=== PATIENT | female | born 1975 | race Caucasian/White ===

== ENCOUNTER → 2018-12-27 13:00 | Outpatient (CLI) | payer OTHER, SELFPAY ==
--- NOTE | 2018-12-27 13:02 | DI.RAD.S_ITS ---
PROCEDURE: XR CHEST 2V INDICATIONS: cough TECHNIQUE: 2 views of the chest were acquired. COMPARISON: None. FINDINGS: Surgical changes and devices: None. Lungs and pleura: Lungs are clear. No pleural effusions or pneumothorax. Mediastinum: Mediastinal contours are normal. Heart size is normal. Bones and chest wall: No suspicious bony abnormalities. Soft tissues appear unremarkable. IMPRESSION: No acute cardiopulmonary pathology. Dictated by: Destin Munson M.D. on 12/27/2018 at 13:16 Approved by: Destin Munson M.D. on 12/27/2018 at 13:22
== END ==
PROVIDERS: PCP Internal Medicine; Visit Provider Physician Assistant
DX: R05 Cough (principal)
CPT/HCPCS: 71046

== ENCOUNTER → 2019-03-16 17:15 | Outpatient (CLI) | payer OTHER, SELFPAY ==
--- NOTE | 2019-03-16 | DI.MG.S_ITS ---
BILATERAL DIGITAL SCREENING MAMMOGRAM 3D/2D WITH CAD: 03/16/2019 CLINICAL: Routine screening. Baseline exam. No prior exams were available for comparison. The tissue of both breasts is extremely dense, which lowers the sensitivity of mammography. Current study was also evaluated with a Computer Aided Detection (CAD) system. There are grouped round calcifications in the right breast posterior depth inferior region are partially seen on the mediolateral oblique view only. No other significant masses, calcifications, or other findings are seen in either breast. IMPRESSION: INCOMPLETE: NEEDS ADDITIONAL IMAGING EVALUATION The grouped round calcifications in the right breast are indeterminate. Additional views with possible ultrasound are recommended. This exam was interpreted at Station ID: [id number]. NOTE: For mammograms, a report in lay terms will be sent to the patient. Approximately 15% of breast malignancies will not be visualized mammographically. In the management of a palpable breast mass, a negative mammogram must not discourage biopsy of a clinically suspicious lesion. Electronically Signed By: Renato Ken M.D. slc/:03/17/2019 08:36:50 letter sent: Additional Imaging Needed ACR BI-RADS Category 0: Incomplete [id number]
== END ==
PROVIDERS: PCP Internal Medicine; Visit Provider Internal Medicine
DX: Z12.31 Encounter for screening mammogram for malignant neoplasm of breast (principal)
CPT/HCPCS: 77063; 77067

== ENCOUNTER → 2019-04-06 13:43 | Outpatient (CLI) | payer OTHER, SELFPAY ==
--- NOTE | 2019-04-06 | DI.MG.S_ITS ---
UNILATERAL RIGHT DIGITAL DIAGNOSTIC MAMMOGRAM 3D/2D WITH ADDITIONAL VIEWS: 04/06/2019 CLINICAL: Additional evaluation requested from prior study. Comparison is made to exam dated: 03/16/2019 [facility]. The tissue of right breast is extremely dense, which lowers the sensitivity of mammography. There are grouped fine punctate calcifications in the right breast at 7 o'clock middle depth. No other significant masses or calcifications are seen in the breast. IMPRESSION: PROBABLY BENIGN The grouped fine punctate calcifications in the right breast are probably benign. A follow-up mammogram in 6 months is recommended. A follow-up mammogram in 6 months is recommended to demonstrate stability. This exam was interpreted at Station ID: [id number]. NOTE: For mammograms, a report in lay terms will be sent to the patient. Approximately 15% of breast malignancies will not be visualized mammographically. In the management of a palpable breast mass, a negative mammogram must not discourage biopsy of a clinically suspicious lesion. Electronically Signed By: Erik soriano/corina:04/06/2019 14:39:55 letter sent: Followup Recommended ACR BI-RADS Category 3: Probably benign [id number]
== END ==
PROVIDERS: PCP Internal Medicine; Visit Provider Internal Medicine
DX: R92.8 Other abnormal and inconclusive findings on diagnostic imaging of breast (principal); R92.1 Mammographic calcification found on diagnostic imaging of breast
CPT/HCPCS: 77065; G0279

== ENCOUNTER → 2019-09-15 10:01 | Outpatient (CLI) | payer SELFPAY ==
--- NOTE | 2019-09-15 | DI.MG.S_ITS ---
UNILATERAL RIGHT DIGITAL DIAGNOSTIC MAMMOGRAM 3D/2D SHORT-TERM FOLLOW-UP: 09/15/2019 CLINICAL: Short term follow up. Comparison is made to exams dated: 04/06/2019 mammogram and 03/16/2019 mammogram - [facility]. The tissue of right breast is extremely dense, which lowers the sensitivity of mammography. There are grouped fine calcifications in the right breast at 6 o'clock posterior depth. These are not significantly changed. No other significant masses or calcifications are seen in the breast. IMPRESSION: PROBABLY BENIGN The grouped fine calcifications in the right breast are probably benign. A follow-up mammogram in 6 months is recommended. A follow-up mammogram in 6 months is recommended to demonstrate stability. This exam was interpreted at Station ID: [id number]. NOTE: For mammograms, a report in lay terms will be sent to the patient. Approximately 15% of breast malignancies will not be visualized mammographically. In the management of a palpable breast mass, a negative mammogram must not discourage biopsy of a clinically suspicious lesion. Electronically Signed By: Erik soriano/corina:09/15/2019 10:57:20 letter sent: Followup Recommended ACR BI-RADS Category 3: Probably benign [id number]
--- NOTE | 2019-09-15 | DI.US.S_ITS ---
PROCEDURE: US THYROID INDICATIONS: RIGHT THYROID NODULE TECHNIQUE: Real-time scanning was performed of the thyroid gland, with image documentation. COMPARISON: [facility], RG, US THYROID, 11/02/2017, 9:29. FINDINGS: Right: Thyroid lobe measures 4.6 x 2.7 x 2.2 cm. Left: Thyroid lobe measures 4.2 x 1.7 x 1.1 cm, and is homogenous in echotexture. Isthmus: 3 mm thick. Nodule number: 1 Location: Right superior thyroid Size: 0.9 x 0.6 x 0.9 cm, previously measuring 0.7 x 0.4 x 0.7 cm. Composition: Predominantly cystic Echogenicity: Hypoechoic Shape: wider than tall. Margins: Smooth Echogenic foci: None Total points: 3 ACR TI-RADS category: 3 Nodule number: 2 Location: Right mid to inferior thyroid Size: 2 x 2.3 x 2.4 cm, previously measuring 2.3 x 2.2 x 1.8 cm. Composition: Predominantly cystic Echogenicity: Hypoechoic Shape: wider than tall. Margins: Smooth Echogenic foci: None Total points: 3 ACR TI-RADS category: 3 IMPRESSION: Right-sided thyroid lesions are seen, which are similar to the prior examination have the appearance of complicated cysts. For the larger lesion, a followup ultrasound is recommended in 2 years. ACR TI-RADS definitions and recommendations: TI-RADS 1 (benign): 0 points. FNA not needed. TI-RADS 2 (not suspicious): 2 points. FNA not needed. TI-RADS 3 (mildly suspicious): 3 points. * FNA if 2.5 cm or larger, follow up if 1.5 cm or larger (at 1, 3, and 5 years). TI-RADS 4 (moderately suspicious): 4-6 points. * FNA if 1.5 cm or larger, follow up if 1 cm or larger (at 1, 2, 3, and 5 years). TI-RADS 5 (highly suspicious): 7 points or more. * FNA if 1 cm or larger, follow up if 0.5 cm or larger (every year for 5 years). Dictated by: Milan Casas M.D. on 09/15/2019 at 10:54 Approved by: Milan Casas M.D. on 09/15/2019 at 10:57
== END ==
PROVIDERS: PCP Internal Medicine; Referring Provider Internal Medicine; Visit Provider Internal Medicine
DX: R92.8 Other abnormal and inconclusive findings on diagnostic imaging of breast (principal); R92.1 Mammographic calcification found on diagnostic imaging of breast; E04.2 Nontoxic multinodular goiter
CPT/HCPCS: 76536; 77065; G0279

== ENCOUNTER 2019-09-28 19:59 | Emergency (ER) | payer SELFPAY ==
[2019-09-28 20:08] VITALS: BP 142/84; PULSE 100; RESP 20; TEMP 37; O2SAT 97
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
[2019-09-28] MEDS: TET,DIPH,PERTUSS(ACELL),VAC/PF 0.5 ML SYRINGE IM (20:48)
[2019-09-28] MEDS: HYDROCODONE/ACET 5/325 PREPACK 1 BOTTLE MISC (20:48)
[2019-09-28] MEDS: ONDANSETRON 4 MG ODT PREPACK 1 BOTTLE MISC (20:48)
[2019-09-28] MEDS: HYDROMORPHONE 1 MG INJ IM (20:50)
--- NOTE | 2019-09-28 21:03 | PC.NURSE ---
Patient was injected with dilaudid and a tdap and tolerated both injections well. She was given ice for her hand.
[2019-09-28 21:05] VITALS: BP 120/72; PULSE 92; RESP 14; O2SAT 100
[2019-09-28 21:35] VITALS: BP 119/90; PULSE 77; RESP 12; O2SAT 100
[2019-09-28] MEDS: BACITRACIN OINT 0.9 GM PCKT 1 APPLIC TOP (21:56)
[2019-09-28 22:12] VITALS: BP 119/90; PULSE 77; RESP 12; O2SAT 100
== END 2019-09-28 22:15 | disposition home or self-care (01) ==
PROVIDERS: Emergency Provider Emergency Medicine; PCP Internal Medicine
DX: T23.201A Burn of second degree of right hand, unspecified site, initial encounter (principal); X08.8XXA Exposure to other specified smoke, fire and flames, initial encounter
CPT/HCPCS: 90471; 96372; 99283; 90715; J1170

== ENCOUNTER 2020-02-10 12:33 | Emergency (ER) | payer OTHER, SELFPAY ==
[2020-02-10] VITALS (8 sets, daily range): BP systolic 106–133; BP diastolic 67–87; PULSE 79–105; RESP 18–29; TEMP 37.1; O2SAT 100; BMI 22.4
--- NOTE | 2020-02-10 12:48 | DI.RAD.S_ITS ---
PROCEDURE: XR CHEST 1V INDICATIONS: chest pain TECHNIQUE: One view of the chest was acquired. COMPARISON: [facility], CR, XR CHEST 2V, 12/27/2018, 13:02. FINDINGS: Surgical changes and devices: None. Lungs and pleura: Lungs are clear. No pleural effusions or pneumothorax. Mediastinum: Mediastinal contours appear normal. Heart size is normal. Bones and chest wall: No suspicious bony lesions. Overlying soft tissues appear unremarkable. IMPRESSION: No evidence acute pulmonary process. Dictated by: Agustin Villagomez M.D. on 02/10/2020 at 12:05 Approved by: Agustin Villagomez M.D. on 02/10/2020 at 12:05
[2020-02-10 13:03] LABS: Add Manual Diff / Slide Review NO; Basophils Absolute Auto 100 /uL (0-100); Basophils Percent Auto 0.8 % (0-2); Eosinophils Absolute Auto 0 /uL (0-450); Eosinophils Percent Auto 0.2 % (2-4); Hematocrit 42.4 % (36-46); Hemoglobin 14.3 g/dL (12.0-16.0); Lymphocytes Absolute Auto 2400 /uL (1100-4500); Lymphocytes Percent Auto 35.7 % (25-40); Mean Corpuscular HGB Conc 33.6 % (30-36); Mean Corpuscular Hemoglobin 30.6 PG (26-34); Mean Corpuscular Volume 90.9 fL (80-100); Monocytes Absolute Auto 400 /uL (0-900); Monocytes Percent Auto 6.8 % (3-14); Neutrophils Absolute Auto 3700 /uL (1500-7000); Neutrophils Percent Auto 56.5 % (50-75); Red Blood Cell Count 4.66 X10^6/uL (4.0-5.2); Red Cell Distribution Width 15.7 % (11.6-14.8); White Blood Cell Count 6.6 X10^3/uL (4.5-11.0)
[2020-02-10 13:10] LABS: Prothrombin Time 11.4 SECONDS (10.1-12.7)
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
[2020-02-10 13:12] LABS: PTT Partial Thromboplastin Tim 29 SECONDS (26.4-36.2)
[2020-02-10 13:15] LABS: Alanine Aminotransferase 16 IU/L (<35); Albumin Globulin Ratio 1.5 (1.0-2.8); Alkaline Phosphatase 55 U/L (38-126); Aspartate Aminotransferase 31 IU/L (14-36); BUN Creatinine Ratio 15.1 (6-22); Bilirubin Total 0.5 mg/dL (0.2-1.3); Blood Urea Nitrogen 11 mg/dL (7-17); Calcium 9.7 mg/dL (8.4-10.2); Carbon Dioxide 25 mmol/L (22-32); Chloride 101 mmol/L (98-107); Creatine Kinase 57 U/L (30-135); Estimated Glomerular Filt Rate > 60.0 mL/min (>60); Globulin 3.4 g/dL (1.7-4.1); Glucose 99 mg/dL (70-100); HEMOLYSIS 35 (0-50); Lipase 173 U/L (23-300); Potassium 3.5 mmol/L (3.4-5.1); Sodium 139 mmol/L (137-145); Total Protein 8.4 g/dL (6.3-8.2)
[2020-02-10] MEDS: ALBUTEROL HFA 200 PUFF/18 GM INH (COVID POS/VENT PTS) INH (13:18)
--- NOTE | 2020-02-10 13:22 | PC.NURSE ---
patient ambulated self to restroom, provided urine sample collected by INSTRUCTIONAL DESIGN TECHNOLOGIST
[2020-02-10 13:28] LABS: D Dimer < 200 ng/mL (<230)
[2020-02-10 13:33] LABS: Platelet Count 89 X10^3/uL (150-400)
[2020-02-10] MEDS: ASPIRIN 81 MG CHEW TAB 324 MG PO (13:49)
[2020-02-10] MEDS: NITROGLYCERIN 0.4 MG SL TAB SL ×2 (13:51→14:22)
[2020-02-10] MEDS: HEPARIN 5,000 UNIT/ML VIAL 4000 UNIT IV (14:07)
[2020-02-10] MEDS: HEPARIN DRIP 25,000 UNIT/500 ML IV.SOLN 13.825 UNIT IV (14:08)
[2020-02-10 14:21] LABS: COVID19 -Nasal RAPID Negative (Negative)
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
--- NOTE | 2020-02-10 15:41 | PC.NURSE ---
Heparin gtt rate verified with transportation aide.
--- NOTE | 2020-02-10 15:48 | PC.NURSE ---
Pt left via EMS to [facility]. Report called to Leta LACY at [facility]. Heparin gtt running at time of leaving ED. CP 08/07. Pt appeared in NAD, had no questions.
[2020-02-13 14:12] LABS: Troponin I 0.483 ng/mL (0.01-0.034)
== END 2020-02-10 15:48 | disposition short-term general hospital (02) ==
PROVIDERS: Emergency Medicine; Emergency Provider Nurse Practitioner Family; PCP Internal Medicine
DX: I21.4 Non-ST elevation (NSTEMI) myocardial infarction (principal); R07.9 Chest pain, unspecified; R06.02 Shortness of breath
CPT/HCPCS: 36415; 71045; 80053; 81003; 81025; 82550; 83690; 84484; 85025; 85379; 85610; 85730; 87635; 93005; 94640; 96365; 96375; 99284; A9270; J1644

== ENCOUNTER → 2020-03-04 10:37 | Outpatient (CLI) | payer OTHER, SELFPAY ==
[2020-03-05 07:46] LABS: COVID19 Sendout Not Detected (Not Detect)
== END ==
PROVIDERS: PCP Internal Medicine; Visit Provider Physician Assistant
DX: Z11.59 Encounter for screening for other viral diseases (principal)
CPT/HCPCS: 87635

== ENCOUNTER → 2020-03-07 12:25 | Outpatient (CLI) | payer OTHER, SELFPAY ==
--- NOTE | 2020-03-15 15:52 | PM.PFT.1 ---
Pulmonary Function Test Referral & Results Date Patient Seen: 03/07/20 Requesting provider: Macy Cr Indication: Dyspnea Results: The spirometry demonstrates an FVC of 3.75 L which is 105% of predicted. The FEV1 was measured at 2.91 L which is 100% of predicted. The FEV1/FVC ratio was 78 which is 94% of predicted. Following the administration of bronchodilator there was no appreciable change to above normal numbers. Lung volumes show an SVC of 3.60 L which is 108% of predicted. The diffusing capacity was measured at 18.72 which is 81% of predicted. The maximum voluntary ventilation was normal Interpretation: This study demonstrates normal pulmonary function
== END ==
PROVIDERS: PCP Internal Medicine; Referring Provider Internal Medicine; Visit Provider Internal Medicine
DX: R06.00 Dyspnea, unspecified (principal); J98.8 Other specified respiratory disorders; Z87.891 Personal history of nicotine dependence
CPT/HCPCS: 94060; 94726; 94729

== ENCOUNTER → 2020-03-25 08:31 | Outpatient (CLI) | payer OTHER, SELFPAY ==
--- NOTE | 2020-03-25 | DI.MG.S_ITS ---
BILATERAL DIGITAL DIAGNOSTIC MAMMOGRAM 3D/2D SHORT-TERM FOLLOW-UP: 03/25/2020 CLINICAL: Patient returns for a 12 month follow up of the right breast, due for bilateral exam. Comparison is made to exams dated: 09/15/2019 mammogram, 04/06/2019 mammogram, and 03/16/2019 mammogram - [facility]. The tissue of both breasts is extremely dense, which lowers the sensitivity of mammography. There are stable grouped fine calcifications in the right breast at 6 o'clock posterior depth. No other significant masses, calcifications, or other findings are seen in either breast. IMPRESSION: PROBABLY BENIGN The stable grouped fine calcifications in the right breast are probably benign. A follow-up right mammogram in 6 months is recommended to demonstrate continued stability. Findings and recommendations were conveyed to the patient at time of exam. This exam was interpreted at Station ID: [id number]. NOTE: For mammograms, a report in lay terms will be sent to the patient. Approximately 15% of breast malignancies will not be visualized mammographically. In the management of a palpable breast mass, a negative mammogram must not discourage biopsy of a clinically suspicious lesion. Electronically Signed By: Joana hilliard/:03/25/2020 09:13:54 letter sent: Followup Recommended ACR BI-RADS Category 3: Probably benign [id number]
== END ==
PROVIDERS: Referring Provider Nurse Practitioner Family; Visit Provider Nurse Practitioner Family
DX: R92.8 Other abnormal and inconclusive findings on diagnostic imaging of breast (principal); R92.1 Mammographic calcification found on diagnostic imaging of breast
CPT/HCPCS: 77066; G0279

== ENCOUNTER → 2020-06-10 09:59 | Outpatient (CLI) | payer OTHER, SELFPAY ==
--- NOTE | 2020-06-10 10:01 | DI.RAD.S_ITS ---
PROCEDURE: XR KNEE RT 3V INDICATIONS: knee pain TECHNIQUE: 3 views of the knee were acquired. COMPARISON: None. FINDINGS: Bones: No fractures or dislocations. No suspicious bony lesions. Soft tissues: No joint effusion. No suspicious soft tissue calcifications. IMPRESSION: No fracture. No osseous lesion. If symptoms and/or clinical suspicion for pathology persists, further assessment with repeat radiographs (7-10 days) or advanced imaging (e.g. CT, MRI or bone scan) should be considered. Dictated by: Carolyn Ruffin MD, PhD on 06/10/2020 at 17:06 Approved by: Carolyn Ruffin MD, PhD on 06/10/2020 at 17:06
== END ==
PROVIDERS: Referring Provider Nurse Practitioner Family; Visit Provider Nurse Practitioner Family
DX: M25.561 Pain in right knee (principal)
CPT/HCPCS: 73562

== ENCOUNTER → 2020-08-12 07:53 | Outpatient (CLI) | payer OTHER, SELFPAY ==
--- NOTE | 2020-08-12 07:54 | DI.US.S_ITS ---
PROCEDURE: US PELVIC COMPLETE INDICATIONS: DUB TECHNIQUE: Real-time scanning was performed of the pelvic organs, with image documentation. Additional endovaginal scanning was necessary due to incomplete visualization of the adnexal and endometrial structures by transabdominal scanning. COMPARISON: [facility], , PELVIC COMPLETE, 07/04/2013, 11:03. FINDINGS: Uterus: Uterus is normal in size at 7.6 x 4.5 x 5 cm. The endometrium measures 7 mm in combined thickness. Ovaries: The right ovary measures 3.1 x 1.4 x 1.6 cm. The left ovary measures 2 x 1.8 x 1.3 cm. The ovaries have a normal sonographic appearance. No adnexal masses are seen. Other: No pathologic free abdominal or pelvic fluid. IMPRESSION: Pelvic ultrasound within normal limits. Dictated by: Milan Casas M.D. on 08/12/2020 at 9:46 Approved by: Milan Casas M.D. on 08/12/2020 at 9:47
== END ==
PROVIDERS: PCP Registered Nurse; Referring Provider Specialist; Visit Provider Specialist
DX: N92.0 Excessive and frequent menstruation with regular cycle (principal); N92.6 Irregular menstruation, unspecified; N94.6 Dysmenorrhea, unspecified
CPT/HCPCS: 76830; 76856

== ENCOUNTER → 2020-08-29 12:08 | Outpatient (CLI) | payer OTHER, SELFPAY ==
[2020-08-29 12:50] LABS: Add Manual Diff / Slide Review NO; Basophils Absolute Auto 100 /uL (0-100); Basophils Percent Auto 0.8 % (0-2); Eosinophils Absolute Auto 0 /uL (0-450); Eosinophils Percent Auto 0.3 % (2-4); Hematocrit 39.9 % (36-46); Hemoglobin 13.2 g/dL (12.0-16.0); Lymphocytes Absolute Auto 2700 /uL (1100-4500); Lymphocytes Percent Auto 39.3 % (25-40); Mean Corpuscular HGB Conc 33.1 % (30-36); Mean Corpuscular Hemoglobin 31.3 PG (26-34); Mean Corpuscular Volume 94.6 fL (80-100); Monocytes Absolute Auto 400 /uL (0-900); Monocytes Percent Auto 6.5 % (3-14); Neutrophils Absolute Auto 3700 /uL (1500-7000); Neutrophils Percent Auto 53.1 % (50-75); Platelet Count 93 X10^3/uL (150-400); Red Blood Cell Count 4.22 X10^6/uL (4.0-5.2); Red Cell Distribution Width 13.3 % (11.6-14.8); White Blood Cell Count 6.9 X10^3/uL (4.5-11.0)
== END ==
PROVIDERS: PCP Registered Nurse; Referring Provider Specialist; Visit Provider Specialist
DX: N92.1 Excessive and frequent menstruation with irregular cycle (principal)
CPT/HCPCS: 36415; 85025

== ENCOUNTER → 2020-09-12 11:37 | Outpatient (CLI) | payer OTHER, SELFPAY ==
[2020-09-12 12:15] LABS: COVID19 -Nasal RAPID Negative (Negative)
== END ==
PROVIDERS: PCP Registered Nurse; Visit Provider Specialist
DX: Z01.812 Encounter for preprocedural laboratory examination (principal); Z20.822 Contact with and (suspected) exposure to COVID-19
CPT/HCPCS: 87635

== ENCOUNTER 2020-09-13 06:17 | Day surgery (SDC) | payer OTHER, SELFPAY ==
[2020-09-13] VITALS (22 sets, daily range): BP systolic 93–125; BP diastolic 56–78; PULSE 63–85; RESP 11–18; TEMP 36.4–37.4; O2SAT 96–100; BMI 25.0
--- NOTE | 2020-09-13 | PATH_ITS ---
[facility] Accession Number: [id number] . 01 Material submitted: . uterus - UTERUS AND BILATERAL FALLOPIAN TUBES . 01 Clinical history: . OPB . 02 Diagnosis: Uterus and Bilateral Fallopian Tubes, Hysterectomy and Bilateral Salpingectomy (Disrupted Specimen Weight 50 grams): Basalis endometrium; negative for glandular hyperplasia, cytologic atypia, or malignancy. Myometrium with no significant histomorphologic abnormality. Uterine serosa with no significant histomorphologic abnormality. Fallopian tubes x2 with scattered, benign paratubal cysts (1-4 mm) and no significant histomorphologic abnormality; negative for epithelial atypia or malignancy. . [facility] 09/17/2020 1717 Local . 02 Electronically signed: . Jeannette Cantu MD, Pathologist NPI- [id number] . 01 Gross description: . The specimen is received in formalin, labeled uterus and bilateral fallopian tubes, and consists of a 50 g disrupted, supracervically resected uterus measuring 5.5 cm from superior fundus to lower uterine segment by 6.0 cm from cornu to cornu, by 3.5 cm from anterior to posterior. The serosa is chacon-pink and smooth. Sectioning reveals a chacon-pink, glistening endometrium measuring 0.1 cm in thickness. The myometrium is chacon-pink and trabeculated, measuring 1.8 cm in thickness. There are two attached fallopian tubes averaging 5.0 cm in length by 0.9 cm in diameter. The serosa is pink-purple and smooth with multiple paratubal cysts ranging from 0.1 cm to 0.4 cm. Sectioning reveals a chacon-pink mucosa and a stellate lumen measuring 0.3 cm in diameter. Retail Customer Service Specialist sections are submitted. . A1-A2: Lower uterine segment. A3-A5: Full-thickness cross-sections with uterus. A6-A7: Fallopian tube, bisected fimbria, and central cross-sections. ([id number]) /FRR 09/17/2020 [facility]4 Local . 02 Pathologist provided ICD-10: N92.1, N94.6 . 02 CPT . 296881 [facility]formed [facility]: [facility] [address] [id number] MD Erik Campbell MD Phone: [phone] Performed at: [address] [id number] MD Oxana Claros MD Phone: [phone]
[2020-09-13] MEDS: LACTATED RINGERS 1,000 ML 100 ML IV ×3 (07:20→20:17)
--- NOTE | 2020-09-13 07:21 | PM.PREOP ---
Pre-operative Note COVID-19 COVID-19 status: Negative Interval Note History & Physical reviewed/Exam performed by Physician: Yes Changes to H&P: No
--- NOTE | 2020-09-13 07:24 | SUR.OPER ---
Lithotomy on padded OR bed. Rabbit Hash Pad Positioner under torso. Head on pillow, arms padded and tucked at sides. Legs secured in padded yellow fins stirrups.
[2020-09-13] MEDS: CEFAZOLIN 2 GM/100 ML FROZ.PIGGY IV (07:45)
[2020-09-13] MEDS: BUPIVACAINE 0.25% W/ EPI 30 ML VIAL INJ (08:17)
[2020-09-13] MEDS: ROPIVACAINE 0.2% PF 2 MG/ML 10ML AMP 20 ML INJ (08:18)
--- NOTE | 2020-09-13 09:18 | PM.OP.1 ---
Operative Date/Time/Diagnoses Date of procedure: 09/13/20 Time of procedure: 09:18 Pre-op diagnosis: Menorrhagia and dysmenorrhea for laparoscopic supracervical hysterectomy Post-op diagnosis: same Procedure & Clinicians Procedure: Laparoscopic supracervical hysterectomy with bilateral salpingectomies Same procedure as scheduled: Yes Indications: Menorrhagia and dysmenorrhea Surgeon: Lorraine Valadez Functional Analyst: Alize Brumfield Click Yes if Unassisted: No Anesthesia Type: General Operative Notes Closure Type: primary Specimen(s): other (Uterus above the level of the cervix and bilateral fallopian tubes) Estimated Blood Loss (mL): 30 Blood products transfused: none Procedure in detail: Patient is brought to the operating room where she underwent general anesthesia and placed in low [facility] stirrups. She was prepped and draped in the usual sterile fashion. A check list was reviewed with the staff in the room prior to beginning of the case. Patient had pulsatile stockings in place and functional. 2 g of Ancef were in prior to beginning of the case.. A Prado catheter was placed. A single-tooth tenaculum was placed on the anterior lip of the cervix and the cervix dilated to a #6 Hegar dilator. The uterine manipulator was placed through the cervix into the uterus with the balloon inflated with 3 mL of air. The area of the umbilical incision and the 5 mm right and left lower quadrant incisions were injected with Marcaine with epi. An incision was made with scalpel. The verries needle was placed into the abdomen and confirmed in the appropriate place with withdrawal on a syringe and then free flow of fluid down through the needle. The abdomen was insufflated with CO2. The needle was removed and a 5 mm trocar placed without difficulty. There did not appear to be any damage is placement of the trocar. The right and left lower quadrant incisions were made with the scalpel and the trochars placed without damage to internal structures. The PK forceps were used to cauterize and cut adhesions of the omentum to the anterior abdominal wall. Sequential bites were taken along the mesosalpinx followed by the round ligaments on both sides. Sequential bites were taken down the broad ligaments. The uterine arteries were cauterized. An incision was made above the level bladder pushing the bladder away from the cervix. The MYLES loop was placed around the uterus and the uterus was amputated above the level of the bladder. Bleeding was controlled with the PK forceps. The PK forceps were used to cauterize in the endocervical canal. A supracervical incision was made and an 11 mm port placed. A 15 mm Endo Catch bag was placed in the abdomen. The uterus, tubes and ovaries were placed in the bag and brought up through the suprapubic port site. The Balbir O was placed. The uterus was hand morselized. The abdomen was reinsufflated and adequate hemostasis was noted. 20 cc Bupivacaine was placed over the cervical stump. The trochars were removed and the CO2 allowed escape from the abdomen. The fascia layer of the suprapubic site was repaired with 0 Polysorb suture. Skin was closed with 4-0 Vicryl suture at the suprapubic site and the other 3 sites. The patient went to recovery room in good condition. Counts of instruments and sponges were correct. Dr. Brumfield was present throughout the case to assist with holding the camera, retracting, cauterizing and cutting the structures on the left side of the patient, as well as assisting with morselization of the uterus. Complications: none Post-operative Condition: stable Disposition: Acute Care (Outpatient with bed, patient is preference is to be discharged tomorrow) Plan for aftercare: Routine post laparoscopy hysterectomy.
[2020-09-13] MEDS: ACETAMINOPHEN 325 MG TABLET 650 MG PO ×2 (09:33→13:24)
[2020-09-13] MEDS: OXYCODONE IR 5 MG TABLET PO ×5 (09:33→23:41)
[2020-09-13] MEDS: fentaNYL 100 MCG/2 ML INJ IV (10:00)
--- NOTE | 2020-09-13 11:18 | PC.NURSE ---
Patient arrived via bed at 1035, assumed care from BAMBI Webster. Patient A/O x 4, VS stable, 98% on room air, denies SOB. Lungs CTA, HR WNL, pulses equal. Patient c/o pain in abdomen /10, cramping, oxy 5 mg administered. Dsg x 4 intact, shadow drainage noted. Peripad is dry. LR@ 100cc/hr running in L wrist. SCD's on. Patient tolerating liquids, call light in reach, instructed to call before getting OOB. Patient verbalized understanding.
[2020-09-13] MEDS: KETOROLAC 30 MG/ML VIAL IV ×2 (16:47→22:16)
[2020-09-13] MEDS: TRAZODONE 50 MG TABLET PO (20:17)
[2020-09-13] MEDS: DOCUSATE 250 MG CAPSULE PO (20:17)
[2020-09-13] MEDS: MELATONIN 3 MG TABLET 9 MG PO (22:17)
[2020-09-14] VITALS: BP 99/62; PULSE 79; RESP 16; TEMP 36.8; O2SAT 96
[2020-09-14 00:18] VITALS: O2SAT 98
[2020-09-14 04:30] VITALS: BP 99/66; PULSE 68; RESP 14; TEMP 36.6; O2SAT 97
[2020-09-14] MEDS: KETOROLAC 30 MG/ML VIAL IV (04:33)
[2020-09-14] MEDS: OXYCODONE IR 5 MG TABLET PO (05:39)
[2020-09-14] MEDS: LEVOTHYROXINE 50 MCG TABLET PO (05:39)
[2020-09-14 05:57] LABS: Basophils Absolute Auto 0 /uL (0-100); Basophils Percent Auto 0.2 % (0-2); Eosinophils Absolute Auto 0 /uL (0-450); Hematocrit 36.7 % (36-46); Lymphocytes Absolute Auto 1600 /uL (1100-4500); Lymphocytes Percent Auto 14.7 % (25-40); Mean Corpuscular HGB Conc 32.7 % (30-36); Mean Corpuscular Volume 94.8 fL (80-100); Monocytes Absolute Auto 900 /uL (0-900); Monocytes Percent Auto 7.9 % (3-14); Neutrophils Absolute Auto 8500 /uL (1500-7000); Neutrophils Percent Auto 77.2 % (50-75); Platelet Count 77 X10^3/uL (150-400); Red Blood Cell Count 3.87 X10^6/uL (4.0-5.2); Red Cell Distribution Width 13.8 % (11.6-14.8)
[2020-09-14 06:02] LABS: Add Manual Diff / Slide Review SLIDE REVIEW
[2020-09-14] MEDS: LACTATED RINGERS 1,000 ML 100 ML IV (06:04)
[2020-09-14 06:30] LABS: RBC Morphology Normal Morphology
[2020-09-14 06:31] LABS: Platelet Estimate Decreased on smear
[2020-09-14 07:52] VITALS: BP 106/72; PULSE 64; RESP 18; TEMP 37.1; O2SAT 98
[2020-09-14] MEDS: DOCUSATE 250 MG CAPSULE PO (08:51)
[2020-09-14] MEDS: SERTRALINE 50 MG TABLET PO (08:51)
[2020-09-14] MEDS: PANTOPRAZOLE 40 MG TABLET PO (08:51)
[2020-09-14] MEDS: ACETAMINOPHEN 325 MG TABLET 650 MG PO (08:51)
--- NOTE | 2020-09-14 09:19 | PC.NURSE ---
Patient has 3 small lap sites above her naval, band aides taken off, steri strips in place and cdi. She also has a bigger incision below her naval that has small amount of drainage to band aide. Will leave this one in tact. Patient denies pain right now. Dr. Brumfield into see patient and will start her on po motrin and then she will be discharging home.
--- NOTE | 2020-09-14 09:20 | PM.DS.1 ---
History of Present Illness History of Present Illness Date Patient Seen: 09/14/20 Time Patient Seen: 09:20 Chief complaint: OPB Narrative: This patient was admitted for a scheduled laparoscopic supracervical hysterectomy and bilateral salpingectomy. Procedure was uncomplicated, the patient's postoperative course was uncomplicated. The patient has a history of low platelets which was reflected in her lab work, but is feeling well with no abnormal bleeding and reports that this is a problem of approximately 20 years with an otherwise negative workup. Patient is otherwise meeting postoperative goals and stable for discharge home on postop day 1. Discharge Providers Provider Discharge Date: 09/14/20 Primary care physician: CAMILO Benavidez Discharge provider: Alize Brumfield MD Summary Hospital Course Discharge Diagnosis: Status post laparoscopic supracervical hysterectomy Hospital Course: This patient was admitted for a scheduled laparoscopic supracervical hysterectomy and bilateral salpingectomy. Procedure was uncomplicated, the patient's postoperative course was uncomplicated. The patient has a history of low platelets which was reflected in her lab work, but is feeling well with no abnormal bleeding and reports that this is a problem of approximately 20 years with an otherwise negative workup. Patient is otherwise meeting postoperative goals and stable for discharge home on postop day 1. Status at Discharge Cognitive/behavioral status at discharge: oriented Functional status at discharge: independent ambulation Overall status at discharge: patient is progressing back to baseline Time Spent with Patient Time spent: Less than 30 minutes Exam Vital Signs (past 8 hours): - 09/14/20 04:30 09/14/20 07:52 Temperature 97.9 F 98.8 F Pulse Rate 68 64 Respiratory Rate 14 18 Blood Pressure 99/66 106/72 Pulse Oximetry 97 98 Oxygen Delivery Method Room Air Oxygen Flow Rate 0 Narrative Exam Narrative: Patient reports ambulating, passing flatus, urinating, tolerating p.o., good pain control on p.o. medications. No chest pain, trouble breathing, no vaginal bleeding, no other symptoms or concerns. Const General: cooperative, healthy appearing, comfortable and well groomed Resp Effort & Inspection: normal respiratory effort Auscultation: clear to auscultation bilaterally Cardio Rate: regular rate Rhythm: regular rhythm GI Inspection: incision (Clean, dry, intact, covered with Steri-Strips) Palpation: soft and No tender Extrem General: normal to inspection Objective Labs Result Diagrams: 09/14/20 05:28 Labs: Laboratory Results - last 24 hr 09/14/20 05:28 WBC 11.0 RBC 3.87 L Hgb 12.0 Hct 36.7 MCV 94.8 MCH 31.0 MCHC 32.7 RDW 13.8 Plt Count 77 L Neut % (Auto) 77.2 H Lymph % (Auto) 14.7 L Chambers % (Auto) 7.9 Eos % (Auto) 0.0 L Baso % (Auto) 0.2 Neut # (Auto) 8500 H Lymph # (Auto) 1600 Chambers # (Auto) 900 Eos # (Auto) 0 Baso # (Auto) 0 Platelet Estimate Decreased on smear Plt Morphology Comment 2+ giant platelets RBC Morphology Normal morphology PFS Medical History (Updated 09/13/20 @ 09:29 by Lorraine Valadez MD) Anxiety (~2006) Clotting disorder Disease of thyroid gland Heavy menstrual period (~2010) History of PFTs (~02/2020) History of pneumonia HIV (human immunodeficiency virus infection) (~2006) Hypothyroidism (~2019) Osteoarthritis (~2017) Painful menstrual periods (~2010) Panic attack Amy-menopausal PTSD (post-traumatic stress disorder) (~2013) Right knee pain Thrombocytopenia (~2000) Thyroid nodule (~2016) Surgical History (Updated 09/13/20 @ 09:29 by Lorraine Valadez MD) Anesthesia History of section History of lumpectomy (~1991) History of partial thyroidectomy (~11/29/19) Family History Sister Cancer Non-Hodgkin's lymphoma Grandfather Stroke Social History household members: spouse and children Smoking Status: Former smoker alcohol intake: current Discharge Assessment & Plan Assessment and Plan Assessment: This patient is stable on postop day 1 status post an uncomplicated laparoscopic supracervical hysterectomy with bilateral salpingectomy. She is meeting all postoperative goals well. The patient has low platelets on blood work today, and reports that today's numbers not unusual for her, that she has had low platelets since early 20s, that she has had an otherwise negative workup. The patient's bleeding is appropriate, and after curbside discussion with a hospitalist physician, the patient is stable for discharge home with outpatient follow-up. Precautions for return were discussed. Plan of Treatment: Home with outpatient follow-up. Discharge Plan Discharge Plan Patient Disposition: Home Discharge orders & Medications Discharge Orders: Discharge (Order); Ordered 09/14/20 Ordered By: Alize Brumfield Prescriptions: Continued Genvoya [phone] mg Tablet 1 tab PO DAILY Qty: 0 RF: 0 sertraline 50 mg tablet 50 mg PO DAILY RF: 0 omeprazole 40 mg capsule,delayed release(DR/EC) 40 mg PO DAILY RF: 0 levothyroxine 50 mcg capsule 50 mcg PO DAILY RF: 0 oxycodone 5 mg capsule 5 mg PO Q4H PRN (Reason: pain) Qty: 30 RF: 0 trazodone 50 mg tablet 50 mg PO BEDTIME RF: 0 melatonin 10 mg Tablet 10 mg PO BEDTIME PRN (Reason: Sleep) RF: 0 multivitamin Tablet 1 tab PO DAILY RF: 0 Follow up/Referrals: Lorraine Valadez MD [Physician] - 09/20/20 3:15 pm (Scheduled at Dr. Valadez office. She should call if this time does not work for her.) Hector Murillo ARNP [Primary Care Provider] - Diet/Activity/Treatments Diet: Regular Activity: Do not drive within 4 hours of taking narcotic pain medicine. Skin/Wound/Dressing Care Report to your healthcare provider any signs of infection, such as:: chills, fever, increased pain and unusual redness Dressing: Remove Band-Aids on 09/14. Leave Steri-Strips in place can get wet just pat dry. May remove in 1 week if still present Visit Report/Discharge Packet Instructions: DI for Laparoscopy, DI for Hysterectomy Stand Alone Forms: Surgery Discharge Discharge Data Primary Care Provider: Hector Murillo Attending Provider: Lorraine Valadez
--- NOTE | 2020-09-14 11:29 | CM.DANOTE ---
Discharge Planning/Care Management DCP: assessment: case received, EMR reviewed and discussed case in Team Rounds. Pt is a 44 year old female who admitted yesterday for a planned gynecological procedure. Payer: Tulio Holt PCP: Hector Brumfield was here and ok'd pt for d/c to home Checked in now with pt. She confirms her readiness to go. Her spouse Gabriel will be here shortly to pick her up. CM Discharge Assessment Start: 09/14/20 11:28 Freq: Status: Active Protocol: Document 09/14/20 11:29 ITV (Rec: 09/14/20 11:29 IT [id number]) Discharge Planning Assessment Advance Directives? No History Provided By Medical Record Household Members spouse,children Independent with ADL's Yes Is patient alert and oriented? Yes Pre-Anesthesia Assessment Start: 09/06/20 10:26 Freq: Status: Complete Protocol: Document 09/06/20 10:26 [facility] (Rec: 09/06/20 10:59 [facility] [id number]) Pre-Anesthesia Assessment Patient Information Reviewed Via Chart Review Seen Specialist in Last 12 Months Yes Specialist Seen Car Wash Supervisor Height 160.02 cm Anesthesia Review Requested No Ripsaw Matcher No alcohol intake frequency a few times a week Smoking Status Former smoker Tobacco type cigarettes how long ago did patient quit smoking 04/12/2019 Substance Use Type does not use Hx Chest Pain Yes Hx SOB Yes Hx Syncope or Dizziness Yes Has a Field Laboratory Operator Yes: 02/17 Cardiac record scanned - [place] [facility] Testing Yes: 02/17 Echo EF 60-65%; Stress normal Comment 09/06 Spoke with the patient, states that after workup, she was diagnosed as Additional comment having a panic attack, not cardiac event Comment [facility] 08/23/20 Advance Directives? No
== END 2020-09-14 12:15 | disposition home or self-care (01) ==
LOC: OR 06:18 → AC 09:18
PROVIDERS: PCP Registered Nurse; Referring Provider Registered Nurse; Visit Provider Specialist
PROC: 0UT94ZL Resection of Uterus, Supracervical, Percutaneous Endoscopic Approach (ICD-10-PCS; CPT 58542; principal; 2020-09-13 07:45)
DX: N92.0 Excessive and frequent menstruation with regular cycle (principal); N94.6 Dysmenorrhea, unspecified; E03.9 Hypothyroidism, unspecified; K21.9 Gastro-esophageal reflux disease without esophagitis; B20 Human immunodeficiency virus [HIV] disease; D69.6 Thrombocytopenia, unspecified; N83.8 Other noninflammatory disorders of ovary, fallopian tube and broad ligament
CPT/HCPCS: 58542; 36415; 81025; 85025; J0690; J1100; J1885; J2405; J2795; J3010

== ENCOUNTER → 2020-09-23 12:37 | Outpatient (CLI) | payer OTHER, SELFPAY ==
[2020-09-13 09:21] VITALS: BMI 25.0
--- NOTE | 2020-09-23 12:38 | DI.MG.S_ITS ---
UNILATERAL RIGHT DIGITAL DIAGNOSTIC MAMMOGRAM 3D/2D: 09/23/2020 CLINICAL: Short follow up. Comparison is made to exams dated: 03/25/2020 mammogram, 09/15/2019 mammogram, 04/06/2019 mammogram, and 03/16/2019 mammogram - [facility]. The tissue of right breast is extremely dense, which lowers the sensitivity of mammography. There are stable grouped fine calcifications in the right breast at 6 o'clock posterior depth. No other significant masses or calcifications are seen in the breast. Mammograms are otherwise stable. IMPRESSION: PROBABLY BENIGN The calcifications in the right breast are stable and probably benign. A follow-up mammogram in 6 months is recommended. The patient will be due for bilateral mammograms at that same visit. Findings and recommendations were conveyed to the patient at time of exam. This exam was interpreted at Station ID: [id number]. NOTE: For mammograms, a report in lay terms will be sent to the patient. Approximately 15% of breast malignancies will not be visualized mammographically. In the management of a palpable breast mass, a negative mammogram must not discourage biopsy of a clinically suspicious lesion. Electronically Signed By: Joana hilliard/:09/23/2020 13:25:04 letter sent: Followup Recommended ACR BI-RADS Category 3: Probably benign [id number]
== END ==
PROVIDERS: PCP Registered Nurse; Referring Provider Registered Nurse; Visit Provider Registered Nurse
DX: R92.8 Other abnormal and inconclusive findings on diagnostic imaging of breast (principal); R92.1 Mammographic calcification found on diagnostic imaging of breast
CPT/HCPCS: 77065; G0279

== ENCOUNTER → 2020-10-25 14:14 | Outpatient (CLI) | payer OTHER, SELFPAY ==
[2020-09-13 09:21] VITALS: BMI 25.0
[2020-10-25 15:07] LABS: Add Manual Diff / Slide Review NO; Basophils Absolute Auto 100 /uL (0-100); Basophils Percent Auto 0.7 % (0-2); Eosinophils Absolute Auto 100 /uL (0-450); Eosinophils Percent Auto 0.8 % (2-4); Lymphocytes Absolute Auto 2600 /uL (1100-4500); Lymphocytes Percent Auto 30.6 % (25-40); Mean Corpuscular HGB Conc 33.4 % (30-36); Mean Corpuscular Hemoglobin 31.5 PG (26-34); Mean Corpuscular Volume 94.2 fL (80-100); Monocytes Absolute Auto 400 /uL (0-900); Monocytes Percent Auto 5.2 % (3-14); Neutrophils Absolute Auto 5400 /uL (1500-7000); Neutrophils Percent Auto 62.7 % (50-75); Platelet Count 104 X10^3/uL (150-400); Red Blood Cell Count 4.14 X10^6/uL (4.0-5.2); White Blood Cell Count 8.6 X10^3/uL (4.5-11.0)
== END ==
PROVIDERS: PCP Registered Nurse; Referring Provider Specialist; Visit Provider Specialist
DX: T81.49XA Infection following a procedure, other surgical site, initial encounter (principal); Z90.711 Acquired absence of uterus with remaining cervical stump
CPT/HCPCS: 36415; 85025

== ENCOUNTER → 2021-03-10 13:18 | Outpatient (CLI) | payer OTHER, SELFPAY ==
[2020-09-13 09:21] VITALS: BMI 25.0
--- NOTE | 2021-03-10 | DI.MG.S_ITS ---
BILATERAL DIGITAL DIAGNOSTIC MAMMOGRAM 3D/2D SHORT-TERM FOLLOW-UP: 03/10/2021 CLINICAL: Short term follow up of the right breast, due for bilateral imaging. Comparison is made to exams dated: 09/23/2020 mammogram, 03/25/2020 mammogram, 09/15/2019 mammogram, 04/06/2019 mammogram, and 03/16/2019 mammogram - [facility]. The tissue of both breasts is extremely dense, which lowers the sensitivity of mammography. There are stable grouped fine calcifications in the right breast at 6 o'clock posterior depth. No other significant masses, calcifications, or other findings are seen in either breast. IMPRESSION: BENIGN There is no mammographic evidence of malignancy. Right breast calcifications at 6 o'clock posterior depth demonstrate long-term stability and are benign. A 1 year screening mammogram is recommended. Exam findings were conveyed to the patient. This exam was interpreted at Station ID: [id number]. NOTE: For mammograms, a report in lay terms will be sent to the patient. Approximately 15% of breast malignancies will not be visualized mammographically. In the management of a palpable breast mass, a negative mammogram must not discourage biopsy of a clinically suspicious lesion. Electronically Signed By: Renato Ken M.D. slc/:03/10/2021 15:27:21 letter sent: Normal Exam ACR BI-RADS Category 2: Benign Finding(s) 3342F
== END ==
PROVIDERS: Referring Provider Nurse Practitioner; Visit Provider Nurse Practitioner
DX: R92.8 Other abnormal and inconclusive findings on diagnostic imaging of breast (principal); R92.1 Mammographic calcification found on diagnostic imaging of breast
CPT/HCPCS: 77066; G0279

== ENCOUNTER → 2021-09-10 10:05 | Outpatient (CLI) | payer OTHER, SELFPAY ==
[2020-09-13 09:21] VITALS: BMI 25.0
[2021-09-10 11:11] LABS: COVID19 -Nasal RAPID Negative (Negative)
== END ==
PROVIDERS: Visit Provider Family Medicine Sleep Medicine
DX: Z20.822 Contact with and (suspected) exposure to COVID-19 (principal)
CPT/HCPCS: 87635; C9803

== ENCOUNTER 2021-09-12 07:38 | Day surgery (SDC) | payer BC, OTHER, SELFPAY ==
[2020-09-13 09:21] VITALS: BMI 25.0
[2021-09-11 09:33] VITALS: BMI 23.9
[2021-09-12 08:00] VITALS: BP 122/84; PULSE 76; RESP 16; TEMP 36.8; O2SAT 99; BMI 23.9
[2021-09-12] MEDS: LACTATED RINGERS 1,000 ML 100 ML IV ×2 (08:16→10:12)
--- NOTE | 2021-09-12 09:24 | PM.PREOP ---
Pre-operative Note COVID-19 COVID-19 status: Negative Result date/Date tested (Pos, Neg/Pending): 09/10/21 Interval Note History & Physical reviewed/Exam performed by Physician: Yes Changes to H&P: No
--- NOTE | 2021-09-12 09:25 | P.OP_ITS ---
Operative Date/Time/Diagnoses Date of procedure: 09/12/21 Time of procedure: 09:25 Pre-op diagnosis: Right hallux abductovalgus with bunion Post-op diagnosis: same Procedure & Clinicians Procedure: Right bunionectomy with distal metatarsal osteotomy 21450 Same procedure as scheduled: Yes Indications: Painful bunion and hallux valgus right foot. Conservative measures failed to alleviate her pain and she wished to have surgical intervention at this time. Consent is signed, no contraindications Surgeon: Twyla Alatorre Click Yes if Unassisted: Yes Anesthesia Type: General Operative Notes Closure Type: primary Specimen(s): none sent Applied: implant(s) (Synthes 2.0 cortical screws (2)) Estimated Blood Loss (mL): 20 Blood products transfused: none Tourniquet time (min): 46 Procedure in detail: The patient was brought to the operating room and placed on the operating table in the supine position. Tourniquet was placed about the right thigh. Well padded appropriately aligned. After induction of general anesthesia the right foot and ankle were prepped and draped in the usual aseptic manner. The tourniquet was inflated. Incision was made over the 1st metatarsal phalangeal joint. The incision was deepened through subcutaneous tissues being careful to identify and retract all vital neurovascular structures. All bleeders were cauterized and ligated as necessary. A medial capsulotomy was performed to the 1st MTPJ exposing the enlarged medial eminence. The saw was used to resect the medial eminence. A saw was used to create a chevron-type osteotomy medial to lateral across the first metatarsal head/neck. A small additional 1 mm piece of bone was removed from the dorsal cut in order to also slightly plantar flex the 1st metatarsal head. The head was shifted and respositioned to reduce the intermetatarsal angle. Temporary fixation was used and using standard AO technique, a 2.0 cortical screw was placed across the osteotomy. Temporary fixation was then removed. And again using standard AO technique, a 2-0 cortical screw was placed across the osteotomy. This was reviewed on C-arm showing good placement and closure of the osteotomy. A saw was used to resect the medial first metatarsal shaft redundant overhang. A rasp was used to reduce the sharp edges of the bone. The area was irrigated with copious amounts normal sterile saline. Once this was loaded it would appear that there did not need to be a hallux phal angeal osteotomy and instead capsule balancing techniques with the soft tissue were appropriate. The great toe was placed in linear alignment and the medial 1st MTP capsule was resected and closed with ethibond and Vicryl. The tourniquet was deflated and a prompt hyperemic response was seen in the foot. Deep and subcutaneous closure was closed performed with Vicryl and Nylon suture to the skin. The foot was dressed with a lightly compressive sterile dressing and splint in alignment. Patient was then placed in a postoperative shoe and transferred to PACU with vital signs stable. Post-operative Condition: stable Disposition: PACU Plan for aftercare: Following a period of postoperative monitoring, the patient will be discharged to home on written and oral postoperative instructions including keeping the dressing dry and intact, no weight to the surgical foot, icing and elevating the foot when seated home. DVT prevention techniques have been reviewed. For the 1st postoperative visit the dressing will be changed and close to the 4th postoperative week we will likely take her post operative foot-xray.
[2021-09-12] MEDS: CEFAZOLIN 2 GM/20 ML SYRINGE IV (09:44)
--- NOTE | 2021-09-12 10:05 | SUR.OPER ---
Supine on padded OR bed, head on pillow, arms secured on padded arm boards at <90 degrees abduction, legs uncrossed, safety belt at thigh, tape over blanket over lower left leg.
[2021-09-12] MEDS: BUPIVACAINE 0.5% (PF) VIAL 30 ML INJ (10:11)
[2021-09-12 11:14] VITALS: BP 111/70; PULSE 89; RESP 19; TEMP 36.5; O2SAT 97
[2021-09-12 11:20] VITALS: BP 113/67; PULSE 77; RESP 12; O2SAT 96
[2021-09-12 11:25] VITALS: BP 112/70; PULSE 84; RESP 12; O2SAT 97
[2021-09-12] MEDS: OXYCODONE/ACETAMINOPHEN 5/325 TABLET 1 TAB PO (11:36)
[2021-09-12 11:40] VITALS: BP 113/70; PULSE 68; RESP 14; TEMP 36.5; O2SAT 99
[2021-09-12 11:55] VITALS: BP 116/64; PULSE 70; RESP 18; TEMP 36.5; O2SAT 97
== END 2021-09-12 12:13 | disposition home or self-care (01) ==
PROVIDERS: PCP Nurse Practitioner; Referring Provider Podiatrist; Visit Provider Podiatrist
PROC: 0QBN0ZZ Excision of Right Metatarsal, Open Approach (ICD-10-PCS; CPT 28292; principal; 2021-09-12 09:15)
DX: M21.611 Bunion of right foot (principal); M20.11 Hallux valgus (acquired), right foot; M79.671 Pain in right foot
CPT/HCPCS: 28296; J0690; J1100; J2405; J2704; J3010

== ENCOUNTER → 2021-10-08 10:18 | Outpatient (CLI) | payer OTHER, SELFPAY ==
[2020-09-13 09:21] VITALS: BMI 25.0
[2021-10-08 11:26] LABS: COVID19 -Nasal RAPID Negative (Negative)
== END ==
PROVIDERS: PCP Nurse Practitioner; Visit Provider Family Medicine Sleep Medicine
DX: Z20.822 Contact with and (suspected) exposure to COVID-19 (principal)
CPT/HCPCS: 87635; C9803

== ENCOUNTER 2021-10-10 11:06 | Day surgery (SDC) | payer OTHER, SELFPAY ==
[2020-09-13 09:21] VITALS: BMI 25.0
[2021-10-07 11:49] VITALS: BMI 23.9
[2021-10-10] VITALS (7 sets, daily range): BP systolic 107–127; BP diastolic 67–83; PULSE 70–95; RESP 12–18; TEMP 36.4–36.6; O2SAT 92–100; BMI 23.9
--- NOTE | 2021-10-10 07:18 | SUR.OPER ---
Supine on padded OR bed, head on pillow, arms secured on padded arm boards at <90 degrees abduction, legs uncrossed, safety belt at thigh, tape over blanket over lower legs.
[2021-10-10] MEDS: LACTATED RINGERS 1,000 ML 100 ML IV (11:52)
--- NOTE | 2021-10-10 12:12 | SUR.PREOP ---
10/10/21-12:10 pm--- OR called, patient informed, delay in surgical start time. ETA now 2pm. Patient aware and notified spouse/ride.
--- NOTE | 2021-10-10 14:00 | PM.PREOP ---
Pre-operative Note COVID-19 COVID-19 status: Negative Result date/Date tested (Pos, Neg/Pending): 10/08/21 Interval Note History & Physical reviewed/Exam performed by Physician: Yes Changes to H&P: No
--- NOTE | 2021-10-10 14:01 | P.OP_ITS ---
Operative Date/Time/Diagnoses Date of procedure: 10/10/21 Time of procedure: 14:01 Pre-op diagnosis: Right foot great toe drift with suspected soft tissue capsule loss of correction Post-op diagnosis: same Procedure & Clinicians Procedure: Right foot hallux phalangeal osteotomy Same procedure as scheduled: Yes Indications: 45-year-old female with recent bunionectomy started showing signs of Jaskaran drift of hallux. This was uncomfortable for her as it was drifting into the 2nd toe and conservative measures failed to alleviate this. Surgery was reviewed and it was decided at this point that it was the best course of action. We discussed the risks, potential complications, alternative options, and expected outcomes. Consent was signed, no contraindication to the procedure at this time. Surgeon: Twyla Alatorre Click Yes if Unassisted: Yes Anesthesia Type: General Operative Notes Closure Type: primary Specimen(s): none sent Applied: implant(s) (Arthrex bone staple x2) Estimated Blood Loss (mL): 20 Blood products transfused: none Tourniquet time (min): 60 Procedure in detail: The patient was brought to the operating room and placed on the operating table in the supine position. Tourniquet was placed about the right thigh. Well padded, appropriately aligned. After induction of general anesthesia the right foot and ankle were prepped and draped in the usual aseptic manner. The tourniquet was inflated. Incision was made over the 1st metatarsal phalangeal joint. The incision was deepened through subcutaneous tissues being careful to identify and retract all vital neurovascular structures. All bleeders were cauterized and ligated as necessary. The dorsal capsule was opened linearly over the 1st MTPJ and into the proximal phalanx. Once parameters of the bone and joint were reviewed, the saw was used to perform an osteotomy at the phalangeal base just about a centimeter from the base. A second bone cut was made distal to that in an angled fashion to allow for a wedge of the bone to be removed. As this was removed the oste otomy was closed down and the straightened alignment was achieved for the toe. The area was irrigated with copious amounts of saline. The appropriate size of staple was selected and with the osteotomy closed under tension, drill holes were made for the staple to be placed. Using the standard technique, the staple was placed but it did not seem to close down the osteotomy with as much tension as was needed. The decision was made to remove this and as this was removed the lateral cortex was compromised. This actually allowed for much better closure. A temporary K-wire was placed across the osteotomy and it closed well with good apposition. A 2nd location for a new staple was selected more medially. Using standard technique holes were drilled and the staple was placed under tension with good alignment. The k-wire was removed. Next, using the original drill holes, the more distal hole was redrilled and able to then except the original staple under tension with good compression. This was verified under C-arm showing good placement and closure of the osteotomy with good alignment. The area was irrigated with copious amounts normal sterile saline. The great toe medial 1st MTP capsule was noted to be a little more robust than when seen under the last procedure, so I used 4-0 ticron to gently reinforce the medial capusle at the 1st MTPJ with some tension into straightened alignment. The tourniquet was deflated and a prompt hyperemic response was seen in the foot. Deep and subcutaneous closure was closed performed with Vicryl and Nylon suture to the skin. The foot was dressed with a lightly compressive sterile dressing and splint in alignment. Patient was then placed in a postoperative shoe and transferred to PACU with vital signs stable. Post-operative Condition: stable Disposition: PACU Plan for aftercare: Following a period of postoperative monitoring, the patient will be discharged to home on written and oral postoperative instructions including keeping the dressing dry and intact, no WB to the foot, icing and elevating the foot when seated home. DVT prevention techniques have been reviewed. For the 1st postoperative visit the dressing will be changed and close to the 4th postoperative week we will likely take x-rays.
[2021-10-10] MEDS: CEFAZOLIN 2 GM/20 ML SYRINGE IV (14:17)
[2021-10-10] MEDS: BUPIVACAINE 0.5% (PF) VIAL 30 ML INJ (14:31)
[2021-10-10] MEDS: LACTATED RINGERS 1,000 ML 42 ML IV (14:59)
[2021-10-10] MEDS: HYDROCODONE/ACET 5/325 TABLET 1 TAB PO (16:12)
--- NOTE | 2021-10-10 16:48 | SUR.PHASEII ---
1635-iv out.dressed. ride on way. Discharge instructions gone over by Ranjith Contreras RN, who stated ready to d/c now [met criteria-wide awake/alert/oriented], after iv out. copy of instructions for home in patients scooter with personal belongings.Dressing cdi rt foot. Rt toes seen and + motion,pink, able to distinguish sensation. some residual n/t. black post op boot on. Pt NWB. crutches at home. 1640-dressed & assisted oob with RT LE elevated while in wheel chair. coming in to assist driving scooter to car. 1645-Discharged to home to husbands car/care with all belongings,instructions, and supplies given by .
== END 2021-10-10 16:45 | disposition home or self-care (01) ==
PROVIDERS: PCP Nurse Practitioner; Referring Provider Podiatrist; Visit Provider Podiatrist
PROC: 0QBN0ZZ Excision of Right Metatarsal, Open Approach (ICD-10-PCS; CPT 28292; principal; 2021-10-10 12:45)
DX: M20.11 Hallux valgus (acquired), right foot (principal); Z98.890 Other specified postprocedural states; E03.9 Hypothyroidism, unspecified; F41.9 Anxiety disorder, unspecified
CPT/HCPCS: 28310; J0690; J1100; J2250; J2405; J2704; J3010

== ENCOUNTER → 2022-08-14 07:33 | Outpatient (CLI) | payer OTHER, BC, SELFPAY ==
[2022-03-09 09:56] VITALS: BMI 25.0
== END ==
PROVIDERS: PCP Nurse Practitioner; Visit Provider Registered Nurse
DX: R30.0 Dysuria (principal)
CPT/HCPCS: 87077; 87086; 87185; 87186

== ENCOUNTER → 2023-02-17 07:01 | Outpatient (CLI) | payer OTHER, BC, SELFPAY ==
[2022-03-09 09:56] VITALS: BMI 25.0
--- NOTE | 2023-02-17 | DI.MG.S_ITS ---
BILATERAL DIGITAL SCREENING MAMMOGRAM 3D/2D WITH CAD: 02/17/2023 CLINICAL: Routine screening. Comparison is made to exams dated: 03/10/2021 mammogram, 03/25/2020 mammogram, and 03/16/2019 mammogram - [facility]. Both breasts are extremely dense, which lowers the sensitivity of mammography (category d />75% glandular tissue). Current study was also evaluated with a Computer Aided Detection (CAD) system. No significant masses, calcifications, or other findings are seen in either breast. There has been no significant interval change. IMPRESSION: NEGATIVE There is no mammographic evidence of malignancy. A 1 year screening mammogram is recommended. Based on the Tyrer Cuzick model (a risk assessment model) the patient's lifetime risk is 17.6% and her 10 year risk is 3.3%. According to the ACR, ACS, and NCCN guidelines, an annual breast MRI exam along with mammogram is recommended if the patient's lifetime risk is 20% or greater. This exam was interpreted at Station ID: [id number]. NOTE: For mammograms, a report in lay terms will be sent to the patient. Approximately 15% of breast malignancies will not be visualized mammographically. In the management of a palpable breast mass, a negative mammogram must not discourage biopsy of a clinically suspicious lesion. Electronically Signed By: Allen beltran/corina:02/17/2023 13:46:30 letter sent: Normal Exam ACR BI-RADS Category 1: Negative [id number]
== END ==
PROVIDERS: PCP Nurse Practitioner; Referring Provider Nurse Practitioner; Visit Provider Nurse Practitioner
DX: Z12.31 Encounter for screening mammogram for malignant neoplasm of breast (principal)
CPT/HCPCS: 77063; 77067

== ENCOUNTER 2023-04-02 06:39 | Day surgery (SDC) | payer OTHER, BC, SELFPAY ==
[2022-03-09 09:56] VITALS: BMI 25.0
[2023-03-30 09:32] VITALS: BMI 25.3
[2023-04-02] VITALS (8 sets, daily range): BP systolic 107–149; BP diastolic 75–96; PULSE 72–97; RESP 12–18; TEMP 36.1–36.6; O2SAT 94–100; BMI 25.3
[2023-04-02] MEDS: LACTATED RINGERS 1,000 ML 42 ML IV (07:18)
--- NOTE | 2023-04-02 07:48 | P.OP_ITS ---
Operative Date/Time/Diagnoses Date of procedure: 04/02/23 Time of procedure: 07:49 Pre-op diagnosis: Right foot pain with suspected arthritis and joint stiffness to the great toe joint, retained hardware, neuritis Post-op diagnosis: same Procedure & Clinicians Procedure: Right first metatarsophalangeal joint cheilectomy with extensor hallucis longus tendon lengthening, Z-plasty lengthening of the incisional scar. Same procedure as scheduled: Yes Indications: 47 yo female with persistent pain and stiffness to the right great toe area. Con servative methods have failed to alleviate her symptoms and she wished to have surgical intervention at this time. We spoke of the risks, potential complications, expected outcomes. Consent was reviewed and signed, no contraindications to the procedures at this time. Surgeon: Twyla Alatorre Click Yes if Unassisted: Yes Anesthesia Type: General Operative Notes Closure Type: primary Specimen(s): none sent Estimated Blood Loss (mL): 20 Blood products transfused: none Tourniquet time (min): 53 Procedure in detail: The patient was brought to the operating room and placed on the operating table in the supine position. Tourniquet was placed about the right ankle. Patient is well-padded and appropriately supported. After induction of general anesthesia the right foot and ankle were prepped and draped in the usual aseptic manner. Local anesthesia using the recorded injectables was obtained to the great toe joint area. The tourniquet was inflated. Incision was made over the dorsal 1st metatarsal phalangeal joint. This was a Z-type incision along the former scar which had been tight, and then proximally the incision was extended linearly. The incision was deepened through subcutaneous tissues being careful to identify and retract all vital neurovascular structures. All bleeders were cauterized and ligated as necess rikki. The capsule was entered dorsally at the joint and this exposed the mild but present enlargement of the dorsal metatarsal head. No significant spurring noted but this was limiting some of the motion of the great toe joint. Also a little mild degenerative change was noted at the dorsal proximal phalangeal base. The saw was used to resect the dorsal first metatarsal head bony prominence. A rasp was used to reduce the sharp edges of the bone on either side of the joint dorsally. The area was irrigated with copious amounts normal sterile saline. The screws in the metatarsal head were far proximal from this area so did not appear to be a part of the condition and did not need removal, nor did the heron in the hallux. Tightness and scarring of the extensor hallucus longus was noted. A slide Z- lengthening of the tendon was performed. The ends overlapped after the slide and once appropriate length was retrieved, 4-0 vicryl and one to two 4-0 ethibond sutures were used to maintain a low profile but strong association with the edges of the tendon. The toe showed increased motion to about 50-55 degrees without crepitus on dorsiflexion and plantarflexion. Deep and subcutaneous closure was closed performed with Vicryl. The tourniquet was deflated and a prompt hyperemic response was seen in the foot. Very carefully and gently, nylon suture used to close the skin with the Z-plasty lobes allowing for increased length of the scar. The foot was dressed with a lightly compressive sterile dressing. Patient was then placed in a postoperative shoe and transferred to PACU with vital signs stable. Complications: none Post-operative Condition: stable Disposition: PACU Plan for aftercare: Following a period of postoperative monitoring, the patient will be discharged to home on written and oral postoperative instructions including keeping the dressing dry and intact, no greater than 50% weight to the surgical foot with assistive device, icing and elevating the foot when seated home. DVT prevention techniques have been reviewed. For the 1st postoperative visit the dressing will be changed and close to the 3rd postoperative week we will likely remove the sutures. Will review ROM techniques to the great toe at her first post op appt.
--- NOTE | 2023-04-02 07:48 | PM.PREOP ---
Pre-operative Note Interval Note History & Physical reviewed/Exam performed by Physician: Yes Changes to H&P: No
[2023-04-02] MEDS: CEFAZOLIN 2 GM/100 ML PREMIX 100 ML IV (07:56)
--- NOTE | 2023-04-02 08:19 | SUR.OPER ---
Supine on padded OR bed, head on pillow, arms secured on padded arm boards at <90 degrees abduction, legs uncrossed, safety belt at thigh, tape over blanket over non-operative leg, bump under right hip.
[2023-04-02] MEDS: BUPIVACAINE 0.5% (PF) 30 ML VIAL INJ (08:24)
[2023-04-02] MEDS: HYDROMORPHONE 1 MG INJ IV (10:00)
[2023-04-02] MEDS: ONDANSETRON 4 MG/2 ML INJ IV (10:10)
[2023-04-02] MEDS: OXYCODONE IR 5 MG TABLET PO (10:15)
== END 2023-04-02 11:00 | disposition home or self-care (01) ==
PROVIDERS: PCP Nurse Practitioner; Referring Provider Podiatrist; Visit Provider Podiatrist
PROC: 0QBN0ZZ Excision of Right Metatarsal, Open Approach (ICD-10-PCS; CPT 28292; principal; 2023-04-02 07:45)
DX: M77.51 Other enthesopathy of right foot and ankle (principal); G57.91 Unspecified mononeuropathy of right lower limb; Z98.890 Other specified postprocedural states; Z96.7 Presence of other bone and tendon implants
CPT/HCPCS: 28289; J0690; J1100; J1170; J1885; J2250; J2405; J2704; J3010

== ENCOUNTER 2023-04-30 07:26 | Day surgery (SDC) | payer OTHER, BC, SELFPAY ==
[2022-03-09 09:56] VITALS: BMI 25.0
[2023-04-28 12:19] VITALS: BMI 25.7
[2023-04-30] VITALS (7 sets, daily range): BP systolic 105–118; BP diastolic 66–79; PULSE 70–88; RESP 16; TEMP 33.3–36.8; O2SAT 98–99; BMI 25.7
[2023-04-30] MEDS: LACTATED RINGERS 1,000 ML 100 ML IV (07:56)
--- NOTE | 2023-04-30 08:55 | PM.PREOP ---
Pre-operative Note Interval Note History & Physical reviewed/Exam performed by Physician: Yes Changes to H&P: No
--- NOTE | 2023-04-30 08:56 | PM.OP.1 ---
Operative Date/Time/Diagnoses Date of procedure: 04/30/23 Time of procedure: 08:56 Pre-op diagnosis: Right great toe area extensor tendon suspected tear with loss of fixation Post-op diagnosis: other (Right great toe extensor hallucis scar adherence and tearing) Procedure & Clinicians Procedure: Right extensor hallucis longus tendonrepair, reinforcement, and grafting Same procedure as scheduled: Yes Indications: 47 yo female with recent surgery to the right great toe which included extensor hallucis lengthening with function deficit of dorsiflexion of the great toe. Conservative measures failed to alleviate the concern and the wish is to undergo investigation with repair with or without graft reinforcement. Consent was reviewed and signed, no contraindications to the procedure at this time. Surgeon: Twyla Alatorre Click Yes if Unassisted: Yes Anesthesia Type: General Operative Notes Closure Type: primary Specimen(s): none sent Prosthetic devices, grafts, tissues, transplants, or devices: Paraderm Thin tissue graft Estimated Blood Loss (mL): 20 Blood products transfused: none Tourniquet time (min): 51 Procedure in detail: Patient was brought to the operating room and placed on the operating room in the supine position. Tourniquet was placed about the right thigh. Patient is well-padded and appropriately supported. After induction of general anesthesia the right foot and ankle were prepped and draped in the usual aseptic manner. Local anesthesia using the recorded injectables was obtained to the great toe joint area. The tourniquet was inflated. Incision was made over the dorsal 1st metatarsal phalangeal joint. This was following in the Z-type incision along the former scar which had healed well, and then proximally the incision was extended linearly. The incision was deepened through subcutaneous tissues being careful to identify and retract all vital neurovascular structures. All bleeders were cauterized and ligated as necessary. The complex of the extensor tendon was immediately noted and found to be in areas very adhered to the underlying bone, and more proximally has less strength with some mild fatty infiltration. Motion was limited as these adherences did not allow for it. Sharp dissection of the tendon from the underlying bone and surrounding scar tissues was performed. There was still limited plantarflexion but dorsiflexion improved when joint was moved. The area was irrigated with copious amounts normal sterile saline. With the scarring of the extensor hallucus longus, larger portions of the scar tissue on it were carefully excised/reduced. Then ethibond was used to reinforce and mildly tubularize the tendon, still keeping mostly flat. Also reinforced proximal where it was a little thinner with vicryl and ethibond. After trimming it to fit, the Paraderm graft was wrapped around it. The ends slightly overlapped and the Paraderm was secured to itself with vicryl and ticron. That seam was rotated laterally and the graft was then adhered to the tendon distally and proximally using vicryl and ticron. This allowed for sliding motion without slippage or bunching. Maintained low profile. Tourniuqet was deflated and a prompt hyperemic response was seen to the foot. Subcutaneous closure was closed performed with Vicryl. Very carefully and gently, nylon suture used to close the skin with the Z-plasty lobes allowing for increased length of the scar. The foot was dressed with a lightly compressive sterile dressing. Patient was then placed in a postoperative shoe and transferred to PACU with vital signs stable. Complications: none Post-operative Condition: stable Disposition: PACU Plan for aftercare: Following a period of postoperative monitoring, the patient will be discharged to home on written and oral postoperative instructions including keeping the dressing dry and intact, no weight to the surgical foot, icing and elevating the foot when seated home. DVT prevention techniques have been reviewed. For the 1st postoperative visit the dressing will be changed and close to the 3rd postoperative week we will likely remove the sutures.
[2023-04-30] MEDS: CEFAZOLIN 2 GM/100 ML PREMIX 100 ML IV (09:20)
--- NOTE | 2023-04-30 09:35 | SUR.OPER ---
Supine on padded OR bed, head on pillow, arms secured on padded arm boards at <90 degrees abduction, legs uncrossed, safety belt at lower torso, tape over blanket over left lower leg. Gel pad under left lower leg, Rolled blanket bump under right hip.
[2023-04-30] MEDS: BUPIVACAINE 0.5% (PF) 30 ML VIAL INJ (09:41)
[2023-04-30] MEDS: OXYCODONE IR 5 MG TABLET PO ×2 (11:26→11:53)
[2023-04-30] MEDS: ONDANSETRON 4 MG/2 ML INJ IV (11:27)
== END 2023-04-30 11:55 | disposition home or self-care (01) ==
PROVIDERS: PCP Nurse Practitioner; Referring Provider Podiatrist; Visit Provider Podiatrist
PROC: (CPT 27691; principal; 2023-04-30 09:00)
DX: S96.111A Strain of muscle and tendon of long extensor muscle of toe at ankle and foot level, right foot, initial encounter (principal)
CPT/HCPCS: 28208; J0690; J1100; J2250; J2405; J2704; J3010

== ENCOUNTER → 2023-07-06 18:39 | Outpatient (CLI) | payer OTHER, BC, SELFPAY ==
[2022-03-09 09:56] VITALS: BMI 25.0
--- NOTE | 2023-07-06 | DI.MRI.S_ITS ---
PROCEDURE: MR FOOT RT WO/W CON INDICATIONS: PAIN IN RT FOOT TECHNIQUE: Multiphasic, multisequence MRI of the forefoot was performed, before and after intravenous contrast administration. COMPARISON: [facility], CR, XR FOOT 3+ VIEWS RIGHT, 08/04/2022, 10:46. FINDINGS: Image quality: Diagnostic. Susceptibility artifacts are noted from surgical hardware. Bones and joints: Postsurgical changes are noted in great toe from prior bunionectomy with surgical hardware in place causing susceptibility artifacts. No gross marrow edema is seen. No acute fracture or dislocation. No metatarsal stress fractures. 1st MTP joint and 1st interphalangeal joint osteoarthritic changes are seen with joint space narrowing and subchondral sclerosis. Mild osteoarthritic changes also seen involving articulation between 1st metatarsal head and sesamoids. Mild edema involving lateral sesamoid of 1st metatarsal head, low-grade sesamoiditis cannot be excluded. Soft tissues: No suspicious soft tissue enhancement. The visualized plantar foot muscles demonstrate normal signal and bulk. There is markedly attenuated appearance of the extensor hallucis longus tendon over the dorsal aspect of 1st MTP joint suggestive of moderate to high-grade partial-thickness tear. No definite full-thickness tendon rupture. Rest of the visualized flexor and extensor tendons appear intact, without tenosynovitis. The distal insertions of the peroneus brevis and longus tendons appear intact. The principal Lisfranc ligament appears intact. No soft tissue ganglion cysts or bursal fluid collections. Sagittal images demonstrate no evidence for plantar plate tears. IMPRESSION: 1. Postsurgical changes in great toe from prior bunionectomy. Susceptibility artifacts are noted. No fracture or dislocation. No metatarsal stress fractures. 2. 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 Very mild edema involving lateral sesamoid of 1st metatarsal head, low-grade sesamoiditis cannot be excluded. 3. Suggestion of moderate to high-grade partial-thickness tear involving extensor hallucis longus tendon over dorsal aspect of 1st MTP joint. No definite full-thickness tendon rupture. Rest of the extensor and flexor tendons are intact. 4. No enhancing soft tissue mass or drainable fluid collection. No abnormal intraosseous enhancement. Dictated by: Destin Munson M.D. on 07/07/2023 at 10:37 Approved by: Destin Munson M.D. on 07/07/2023 at 10:41
== END ==
LOC: MRI 18:40
PROVIDERS: PCP Nurse Practitioner; Referring Provider Podiatrist; Visit Provider Podiatrist
DX: M79.671 Pain in right foot (principal)
CPT/HCPCS: 73720

== ENCOUNTER 2023-08-07 12:39 | Emergency (ER) | payer OTHER, BC, SELFPAY ==
[2022-03-09 09:56] VITALS: BMI 25.0
[2023-08-07 12:45] VITALS: BP 138/80; PULSE 96; RESP 18; TEMP 36.2; O2SAT 96; BMI 25.7
--- NOTE | 2023-08-07 12:59 | DI.US.S_ITS ---
PROCEDURE: US PELVIC COMPLETE INDICATIONS: L adnesa pain eval for ovary pathology TECHNIQUE: Real-time scanning was performed of the pelvic organs, with image documentation. Additional endovaginal scanning was necessary due to incomplete visualization of the adnexal and endometrial structures by transabdominal scanning. COMPARISON: [facility], US, US PELVIC COMPLETE, 10/25/2020, 14:46. FINDINGS: Uterus: Surgically absent. Ovaries: The right ovary measures 3.6 x 4.0 x 3.0 cm, with a calculated ovarian volume of 22.5 cc. Complex right ovarian cyst measuring 3.4 x 2.6 x 2.7 centimeters. The left ovary measures 2.4 x 2.7 x 2.4 cm, with a calculated ovarian volume of 7.9 cc. The ovaries have a normal sonographic appearance. Less than 12 follicles can be seen in each ovary. No adnexal masses are seen. Other: No pathologic free abdominal or pelvic fluid. IMPRESSION: Complex right ovarian cyst measuring 3.4 centimeters. Recommend short-term follow-up ultrasound in 6-12 weeks to assess stability or resolution. Status post hysterectomy We strive to produce accurate, complete, and clear reports of imaging services. To assist us in improving patient care, this report was composed using standard report templates and voice recognition software. Therefore, it may contain abnormal punctuation, insertions and/or omissions. Occasional wrong-word or sound-alike substitutions may occur. Though we review the report and make efforts to correct it, we do recommend that the report be read carefully in proper context to recognize any text inaccuracies. Dictated by: Porfirio Gonzalez M.D. on 08/07/2023 at 13:43 Approved by: Porfirio Gonzalez M.D. on 08/07/2023 at 13:44
--- NOTE | 2023-08-07 12:59 | ED_ITS ---
HPI - General Adult General Chief complaint: Abdominal Pain Stated complaint: severe lower lt abd pain Time Seen by Provider: 08/07/23 12:52 Source: patient Mode of arrival: Ambulatory History of Present Illness HPI narrative: 47-year-old female who has had a partial hysterectomy who still has her ovaries and cervix who is here for evaluation of fairly sudden onset of worsening left- sided adnexal discomfort. Started approximately 1 hour ago however for the past couple days she has had some mild general lower abdominal discomfort. She was sitting when this 1st happened. She has not having any vaginal bleeding. No urinary symptoms. No change in bowel habits. Is having nausea but no vomiting. No fevers. No other abdominal surgeries except for the hysterectomy. Not on hormones. Related Data Home Medications Medication Instructions Recorded Confirmed elviteg 150 mg-cob 150 mg-emtricit 1 tab PO DAILY ##0 03/18/16 04/30/23 200 mg-tenofo alafenam 10 mg tablet (Genvoya) levothyroxine 50 mcg capsule 75 mcg PO DAILY 08/15/20 04/30/23 sertraline 50 mg tablet 100 mg PO DAILY 08/15/20 04/30/23 trazodone 50 mg tablet 50 mg PO BEDTIME 09/06/20 04/30/23 multivitamin 1 tab PO DAILY 09/13/20 04/30/23 Previous Rx's Medication Instructions Recorded benzonatate 100 mg capsule 100 mg PO TID PRN cough #20 caps 10/05/22 ondansetron 4 mg disintegrating 4 mg PO Q6H PRN nausea and 08/07/23 tablet vomiting #10 tabs tramadol 50 mg tablet 50 mg PO Q4H PRN pain #10 tabs 08/07/23 Allergies Allergy/AdvReac Type Severity Reaction Status Date / Time No Known Drug Allergies Allergy Verified 08/07/23 12:49 Review of Systems Constitutional Constitutional: Reports system reviewed and no additional complaints, except as documented Gastrointestinal Gastrointestinal: Reports system reviewed and no additional complaints, except as documented Genitourinary Genitourinary: Reports system reviewed and no additional complaints, except as documented Integumentary/Breasts Skin/Breast: Reports system reviewed and no additional complaints, except as documented Neurologic Neurologic: Reports system reviewed and no additional complaints, except as documented Patient History Medical History GERD (gastroesophageal reflux disease) Anesthesia complication Hallux valgus (acquired), right foot Panic attack Disease of thyroid gland Clotting disorder History of pneumonia History of PFTs (~02/2020) Amy-menopausal Osteoarthritis (~2017) PTSD (post-traumatic stress disorder) (~2013) Anxiety (~2006) HIV (human immunodeficiency virus infection) (~2006) Thrombocytopenia (~2000) Painful menstrual periods (~2010) Heavy menstrual period (~2010) Thyroid nodule (~2016) Hypothyroidism (~2019) Right knee pain Surgical History (Updated 04/28/23 @ 12:21 by Shavon Salcedo RN) Status post right foot surgery (04/02/23) History of excision of pilonidal cyst (~03/2022) History of History of orthopedic surgery (10/10/21) History of bunionectomy of right great toe (09/12/21) History of laparoscopy-assisted vaginal hysterectomy (09/13/20) Anesthesia History of partial thyroidectomy (~11/29/19) History of section History of lumpectomy (~1991) Family History Sister Cancer Non-Hodgkin's lymphoma Grandfather Stroke Social History household members: spouse and children Smoking Status: Former smoker alcohol intake: current Smoking Status: Former smoker alcohol intake frequency: holidays/special occasions only Substance Use Type: does not use Exam Initial Vital Signs Initial Vital Signs: Vital Signs Temperature 97.2 F L 08/07/23 12:45 Pulse Rate 96 H 08/07/23 12:45 Respiratory Rate 18 08/07/23 12:45 Blood Pressure 138/80 08/07/23 12:45 Pulse Oximetry 96 08/07/23 12:45 Oxygen Delivery Method Room Air 08/07/23 12:45 Const General: cooperative and comfortable HENMT Head: normal to inspection GI Inspection: normal to inspection and non-distended Palpation: soft, No firm, No guarding and tender (Left adnexal) Other: Left adnexal pain Back/Spine/Pelvis Back: No CVA tenderness Skin General: no rashes or lesions noted Neuro General: patient alert, patient awake and moves all extremities Extrem General: capillary refill normal Course Orders Ordered: ED Orders 08/07/23 12:59 US pelvic complete Stat 08/07/23 13:07 Complete Blood Count AUTO DIFF Stat Comprehensive Metabolic Panel Stat Lipase Stat 08/07/23 13:39 CT abdomen pelvis w con Stat Ondansetron HCl (Ondansetron 4 Mg Odt) 4 mg PO NOW PRN PRN Reason: Nausea And Vomiting Ondansetron HCl (Ondansetron 4 Mg/2 Ml Inj) 4 mg IV NOW PRN PRN Reason: Nausea And Vomiting Discontinued Medications Hydrocodone Bitart/Acetaminophen (Hydrocodone/Acet 5/325 Tablet) 1 tab PO NOW ONE Stop: 08/07/23 14:11 Last Admin: 08/07/23 14:18 Dose: 1 tab Documented By: Ketorolac Tromethamine (Ketorolac 30 Mg/Ml Vial) 30 mg IV NOW ONE Stop: 08/07/23 13:01 Last Admin: 08/07/23 13:07 Dose: 30 mg Documented By: EDMOND Ondansetron HCl (Ondansetron 4 Mg/2 Ml Inj) 4 mg IV NOW ONE Stop: 08/07/23 13:01 Last Admin: 08/07/23 13:07 Dose: 4 mg Documented By: EDMOND Vital Signs Vital signs: Vital Signs - 8 hr 08/07/23 12:45 Temperature 97.2 F L Pulse Rate 96 H Respiratory Rate 18 Blood Pressure 138/80 Pulse Oximetry 96 Oxygen Delivery Method Room Air Medical Decision Making Lab Data Lab results reviewed: Yes I reviewed the patient's lab results. 08/07/23 13:07 08/07/23 13:07 Labs: Lab Results 08/07/23 Range/Units 13:07 WBC 6.6 (4.5-11.0) X10^3/uL RBC 4.15 (4.0-5.2) X10^6/uL Hgb 14.0 (12.0-16.0) g/dL Hct 40.9 (36-46) % MCV 98.6 (80-100) fL MCH 33.6 (26-34) PG MCHC 34.1 (30-36) % RDW 13.4 (11.6-14.8) % Plt Count 94 L (150-400) X10^3/uL Neut % (Auto) 59.6 (50-75) % Lymph % (Auto) 33.8 (25-40) % [place] % (Auto) 5.2 (3-14) % Eos % (Auto) 0.9 L (2-4) % Baso % (Auto) 0.5 (0-2) % Neut # (Auto) 3900 (7252-8828) /uL Lymph # (Auto) 2200 (1472-3757) /uL [place] # (Auto) 300 (0-900) /uL Eos # (Auto) 100 (0-450) /uL Baso # (Auto) 0 (0-100) /uL Platelet Estimate RBC Morphology Normal morphology Sodium 137 (137-145) mmol/L Potassium 3.4 (3.4-5.1) mmol/L Chloride 107 (98-107) mmol/L Carbon Dioxide 25 (22-32) mmol/L BUN 13 (7-17) mg/dL Creatinine 0.69 (0.52-1.04) mg/dL Estimated GFR > 60 (>60) mL/min BUN/Creatinine Ratio 18.8 (6-22) Glucose 111 H (70-100) mg/dL Calcium 8.7 (8.4-10.2) mg/dL Total Bilirubin 0.4 (0.2-1.3) mg/dL AST 23 (14-36) IU/L ALT 18 (<35) IU/L Alkaline Phosphatase 59 (38-126) U/L Total Protein 7.0 (6.3-8.2) g/dL Albumin 4.2 (3.5-5.0) g/dL Globulin 2.8 (1.7-4.1) g/dL Albumin/Globulin Ratio 1.5 (1.0-2.8) Lipase 175 (23-300) U/L Point of Care Testing Test Results Negative Urine Dip Bedside Urine Glucose 100 mg/dl Bedside Urine Ketone - Negative Urine Specific [place] 1.0 Bedside Urine Occult Blood - Negative Bedside Urine pH 7.5 Bedside Urine Protein - Negative Bedside Urine Urobilinogen - Negative Bedside Urine Nitrite - Negative Bedside Urine Leukocytes - Negative Esterase Point of care testing: Point of Care Testing Test Results Negative Urine Dip Bedside Urine Glucose 100 mg/dl Bedside Urine Ketone - Negative Urine Specific [place] 1.0 Bedside Urine Occult Blood - Negative Bedside Urine pH 7.5 Bedside Urine Protein - Negative Bedside Urine Urobilinogen - Negative Bedside Urine Nitrite - Negative Bedside Urine Leukocytes - Negative Esterase Imaging Data US - [facility] MAGISTRATE: Radiologist's Impression: PROCEDURE: US PELVIC COMPLETE INDICATIONS: L adnesa pain eval for ovary pathology TECHNIQUE: Real-time scanning was performed of the pelvic organs, with image documentation. Additional endovaginal scanning was necessary due to incomplete visualization of the adnexal and endometrial structures by transabdominal scanning. COMPARISON: [facility], US, US PELVIC COMPLETE, 10/25/2020, 14:46. FINDINGS: Uterus: Surgically absent. Ovaries: The right ovary measures 3.6 x 4.0 x 3.0 cm, with a calculated ovarian volume of 22.5 cc. Complex right ovarian cyst measuring 3.4 x 2.6 x 2.7 centimeters. The left ovary measures 2.4 x 2.7 x 2.4 cm, with a calculated ovarian volume of 7.9 cc. The ovaries have a normal sonographic appearance. Less than 12 follicles can be seen in each ovary. No adnexal masses are seen. Other: No pathologic free abdominal or pelvic fluid. IMPRESSION: Complex right ovarian cyst measuring 3.4 centimeters. Recommend short-term follow-up ultrasound in 6-12 weeks to assess stability or resolution. Status post hysterectomy CT scan - abdomen/pelvis: Radiologist's Impression: PROCEDURE: CT ABDOMEN PELVIS W CON INDICATIONS: L adnexa pain/ LLQ abd pain TECHNIQUE: After the administration of intravenous contrast, axial sections acquired from the lung bases to the pubic symphysis. Coronal and sagittal reformats were performed. For radiation dose reduction, the following was used: automated exposure control, adjustment of mA and/or kV according to patient size. COMPARISON: [facility], US, US PELVIC COMPLETE, 08/07/2023, 13:20. FINDINGS: Image quality: Diagnostic. Lower Chest: No significant findings. ABDOMEN: Liver: No solid mass. Gallbladder: No radiopaque gallstones or wall thickening. Biliary ducts: No biliary dilation. Pancreas: No ductal dilation. Spleen: Size is within normal limits. Adrenal Glands: No adrenal nodules. Kidneys and Ureters: No hydronephrosis. No solid mass. No complex renal cystic lesion which requires follow up. Stomach and Bowel: Normal colonic caliber, without significant wall thickening. Normal appendix. Peritoneum: No abnormal intraperitoneal fluid. No free air. Ventral Wall: No significant ventral hernia. Abdominal Nodes: No retroperitoneal or mesenteric adenopathy by size criteria. Vessels: Aorta and inferior vena cava are normal in size. Atherosclerotic vascular calcifications. PELVIS: Pelvic Organs: Right ovarian cysts, please see dedicated pelvic ultrasound from the same day.. Bladder: No bladder wall thickening, accounting for underdistention. Pelvic Nodes: No enlarged lymph nodes. Miscellaneous: No inguinal hernias are seen. Bones: No aggressive osseous abnormality. IMPRESSION: 1. No acute findings within the abdomen or pelvis to explain patient's symptoms. 2. Again seen right ovarian cysts, please refer to same day pelvic ultrasound. MDM Narrative Medical decision making narrative: Extensive workup here in the emergency department shows no acute pathology. Ultrasound shows a right-sided ovarian cyst but nothing on the left. No signs of ovarian torsion. CT scan shows no signs of appendicitis, bowel obstruction, diverticulitis, ureteral stone/kidney stone. Urinalysis is unremarkable. Patient understands the lack of a definitive diagnosis. Will provide symptom treatment for now. Recommended follow-up with her primary provider. If symptoms worsen she can return to the emergency department for further evaluation. Discharge Plan Departure Patient Disposition: Home Clinical Impression: Abdominal pain Instructions: DI for Abdominal Pain-Adult Activity Restrictions/Additional Instructions: Continue to take all of your medications as directed. I do recommend a bland diet for the next couple days. Contact your primary care provider for a follow- up. Return to the emergency department for new or worsening symptoms. Prescriptions: New ondansetron 4 mg tablet,disintegrating 4 mg PO Q6H PRN (Reason: nausea and vomiting) Qty: 10 0RF tramadol 50 mg tablet 50 mg PO Q4H PRN (Reason: pain) Qty: 10 0RF No Action benzonatate 100 mg capsule 100 mg PO TID PRN (Reason: cough) Qty: 20 0RF Genvoya [phone] mg Tablet 1 tab PO DAILY Qty: 0 sertraline 50 mg tablet 100 mg PO DAILY levothyroxine 50 mcg capsule 75 mcg PO DAILY trazodone 50 mg tablet 50 mg PO BEDTIME multivitamin Tablet 1 tab PO DAILY Referrals: Kiki Serrano ARNP [Primary Care Provider] - Stand Alone Forms: Patient Portal/API
[2023-08-07] MEDS: ONDANSETRON 4 MG/2 ML INJ IV (13:07)
[2023-08-07] MEDS: KETOROLAC 30 MG/ML VIAL IV (13:07)
[2023-08-07 13:32] LABS: Alanine Aminotransferase 18 IU/L (<35); Albumin 4.2 g/dL (3.5-5.0); Albumin Globulin Ratio 1.5 (1.0-2.8); Alkaline Phosphatase 59 U/L (38-126); Aspartate Aminotransferase 23 IU/L (14-36); BUN Creatinine Ratio 18.8 (6-22); Bilirubin Total 0.4 mg/dL (0.2-1.3); Blood Urea Nitrogen 13 mg/dL (7-17); Calcium 8.7 mg/dL (8.4-10.2); Carbon Dioxide 25 mmol/L (22-32); Chloride 107 mmol/L (98-107); Estimated Glomerular Filt Rate > 60 mL/min (>60); Globulin 2.8 g/dL (1.7-4.1); Glucose 111 mg/dL (70-100); HEMOLYSIS < 15 (0-50); Lipase 175 U/L (23-300); Potassium 3.4 mmol/L (3.4-5.1); Sodium 137 mmol/L (137-145)
--- NOTE | 2023-08-07 13:39 | DI.CT.S_ITS ---
PROCEDURE: CT ABDOMEN PELVIS W CON INDICATIONS: L adnexa pain/ LLQ abd pain TECHNIQUE: After the administration of intravenous contrast, axial sections acquired from the lung bases to the pubic symphysis. Coronal and sagittal reformats were performed. For radiation dose reduction, the following was used: automated exposure control, adjustment of mA and/or kV according to patient size. COMPARISON: [facility], , PELVIC COMPLETE, 08/07/2023, 13:20. FINDINGS: Image quality: Diagnostic. Lower Chest: No significant findings. ABDOMEN: Liver: No solid mass. Gallbladder: No radiopaque gallstones or wall thickening. Biliary ducts: No biliary dilation. Pancreas: No ductal dilation. Spleen: Size is within normal limits. Adrenal Glands: No adrenal nodules. Kidneys and Ureters: No hydronephrosis. No solid mass. No complex renal cystic lesion which requires follow up. Stomach and Bowel: Normal colonic caliber, without significant wall thickening. Normal appendix. Peritoneum: No abnormal intraperitoneal fluid. No free air. Ventral Wall: No significant ventral hernia. Abdominal Nodes: No retroperitoneal or mesenteric adenopathy by size criteria. Vessels: Aorta and inferior vena cava are normal in size. Atherosclerotic vascular calcifications. PELVIS: Pelvic Organs: Right ovarian cysts, please see dedicated pelvic ultrasound from the same day.. Bladder: No bladder wall thickening, accounting for underdistention. Pelvic Nodes: No enlarged lymph nodes. Miscellaneous: No inguinal hernias are seen. Bones: No aggressive osseous abnormality. IMPRESSION: 1. No acute findings within the abdomen or pelvis to explain patient's symptoms. 2. Again seen right ovarian cysts, please refer to same day pelvic ultrasound. Dictated by: Porfirio Gonzalez M.D. on 08/07/2023 at 14:14 Approved by: Porfirio Gonzalez M.D. on 08/07/2023 at 14:17
[2023-08-07 13:45] LABS: Basophils Absolute Auto 0 /uL (0-100); Basophils Percent Auto 0.5 % (0-2); Eosinophils Absolute Auto 100 /uL (0-450); Eosinophils Percent Auto 0.9 % (2-4); Hematocrit 40.9 % (36-46); Lymphocytes Absolute Auto 2200 /uL (1100-4500); Lymphocytes Percent Auto 33.8 % (25-40); Mean Corpuscular HGB Conc 34.1 % (30-36); Mean Corpuscular Hemoglobin 33.6 PG (26-34); Mean Corpuscular Volume 98.6 fL (80-100); Monocytes Absolute Auto 300 /uL (0-900); Monocytes Percent Auto 5.2 % (3-14); Neutrophils Absolute Auto 3900 /uL (1500-7000); Neutrophils Percent Auto 59.6 % (50-75); Red Blood Cell Count 4.15 X10^6/uL (4.0-5.2); Red Cell Distribution Width 13.4 % (11.6-14.8); White Blood Cell Count 6.6 X10^3/uL (4.5-11.0)
[2023-08-07 13:46] LABS: Add Manual Diff / Slide Review SLIDE REVIEW; Platelet Count 94 X10^3/uL (150-400)
[2023-08-07 14:07] VITALS: PULSE 97; O2SAT 98
[2023-08-07 14:08] VITALS: BP 118/64; PULSE 91; O2SAT 100
[2023-08-07 14:18] LABS: RBC Morphology Normal Morphology
[2023-08-07] MEDS: HYDROCODONE/ACET 5/325 TABLET 1 TAB PO (14:18)
== END 2023-08-07 14:47 | disposition home or self-care (01) ==
PROVIDERS: Emergency Provider Emergency Medicine; PCP Nurse Practitioner
DX: R10.32 Left lower quadrant pain (principal)
CPT/HCPCS: 36415; 74177; 76830; 76856; 80053; 81003; 81025; 83690; 85025; 93975; 96374; 96375; 99284; 99285; J1885; J2405; Q9967

== ENCOUNTER → 2023-10-11 13:50 | Outpatient (CLI) | payer OTHER, BC, SELFPAY ==
[2022-03-09 09:56] VITALS: BMI 25.0
--- NOTE | 2023-10-11 13:53 | DI.RAD.S_ITS ---
PROCEDURE: XR HAND RT MIN 3V INDICATIONS: HAND PAIN TECHNIQUE: 3 views of the hand(s) acquired. COMPARISON: None. FINDINGS: Bones: Degenerative changes of the distal interphalangeal joints of the lesser rays, most pronounced and mild at the 2nd distal interphalangeal joint. No acute fracture or dislocation. Soft tissues: No suspicious soft tissue calcifications. IMPRESSION: Degenerative changes as described above. Dictated by: Wilma Moore M.D. on 10/11/2023 at 15:34 Approved by: Wilma Moore M.D. on 10/11/2023 at 15:36
--- NOTE | 2023-10-11 13:53 | DI.RAD.S_ITS ---
PROCEDURE: XR HAND LT MIN 3V INDICATIONS: HAND PAIN TECHNIQUE: 3 views of the hand(s) acquired. COMPARISON: None. 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 Additional mild degenerative changes of the distal interphalangeal joint of the 3rd, 4th, and the 5th digit. No acute fracture or dislocation. Soft tissues: No suspicious soft tissue calcifications. IMPRESSION: Chronic changes as described above. Dictated by: Wilma Moore M.D. on 10/11/2023 at 15:38 Approved by: Wilma Moore M.D. on 10/11/2023 at 15:40
== END ==
PROVIDERS: PCP Nurse Practitioner; Referring Provider Nurse Practitioner Family; Visit Provider Nurse Practitioner Family
DX: M15.4 Erosive (osteo)arthritis (principal); M79.641 Pain in right hand; M79.642 Pain in left hand; M25.50 Pain in unspecified joint
CPT/HCPCS: 73130

== ENCOUNTER 2023-11-12 06:32 | Emergency (ER) | payer OTHER, BC, SELFPAY ==
[2022-03-09 09:56] VITALS: BMI 25.0
[2023-11-12] VITALS (8 sets, daily range): BP systolic 109–119; BP diastolic 65–75; PULSE 98–112; RESP 16; TEMP 36.7–36.9; O2SAT 97–100; BMI 24.7
[2023-11-12] MEDS: SODIUM CHLORIDE 0.9% 1,000 ML 1000 ML IV (07:17)
[2023-11-12] MEDS: ONDANSETRON 4 MG/2 ML INJ IV (07:18)
[2023-11-12 07:24] LABS: Basophils Absolute Auto 0 /uL (0-100); Basophils Percent Auto 0.3 % (0-2); Eosinophils Absolute Auto 0 /uL (0-450); Eosinophils Percent Auto 0.2 % (2-4); Hematocrit 43.7 % (36-46); Lymphocytes Absolute Auto 900 /uL (1100-4500); Lymphocytes Percent Auto 16.7 % (25-40); Mean Corpuscular HGB Conc 34.4 % (30-36); Mean Corpuscular Hemoglobin 33.6 PG (26-34); Mean Corpuscular Volume 97.5 fL (80-100); Monocytes Absolute Auto 300 /uL (0-900); Monocytes Percent Auto 6.2 % (3-14); Neutrophils Absolute Auto 4000 /uL (1500-7000); Neutrophils Percent Auto 76.6 % (50-75); Red Blood Cell Count 4.48 X10^6/uL (4.0-5.2); Red Cell Distribution Width 12.8 % (11.6-14.8); White Blood Cell Count 5.2 X10^3/uL (4.5-11.0)
[2023-11-12 07:29] LABS: Alanine Aminotransferase 18 IU/L (<35); Albumin 4.1 g/dL (3.5-5.0); Albumin Globulin Ratio 1.6 (1.0-2.8); Alkaline Phosphatase 70 U/L (38-126); Aspartate Aminotransferase 31 IU/L (14-36); BUN Creatinine Ratio 13.8 (6-22); Bilirubin Total 0.4 mg/dL (0.2-1.3); Blood Urea Nitrogen 11 mg/dL (7-17); Calcium 8.8 mg/dL (8.4-10.2); Carbon Dioxide 27 mmol/L (22-32); Chloride 103 mmol/L (98-107); Estimated Glomerular Filt Rate > 60 mL/min (>60); Globulin 2.6 g/dL (1.7-4.1); Glucose 119 mg/dL (70-100); HEMOLYSIS < 15 (0-50); Lipase 80 U/L (23-300); Potassium 3.4 mmol/L (3.4-5.1); Sodium 137 mmol/L (137-145); Total Protein 6.7 g/dL (6.3-8.2)
[2023-11-12 07:44] LABS: Add Manual Diff / Slide Review SLIDE REVIEW; Platelet Count 90 X10^3/uL (150-400)
--- NOTE | 2023-11-12 07:54 | ED_ITS ---
HPI - Nausea/Vomiting/Diarrhea General Chief complaint: Nausea/Vomiting/Diarrhea Stated complaint: Stomach pain , throwing up Time Seen by Provider: 11/12/23 06:34 Source: patient Mode of arrival: Ambulatory History of Present Illness HPI Narrative: 47-year-old female presents for nausea, diarrhea, possible dehydration. Son sick at home with diarrhea illness prior to her symptom onset. Patient states that she has not been able to drink enough fluids to keep up with the amount of diarrhea she has been having. This morning she felt lightheaded and nearly passed out and so she decided to come to the ER for evaluation. She states that she feels she needs IV fluids. Related Data Home Medications Medication Instructions Recorded Confirmed levothyroxine 50 mcg capsule 75 mcg PO DAILY 08/15/20 09/01/23 trazodone 50 mg tablet 50 mg PO BEDTIME 09/06/20 09/01/23 multivitamin 1 tab PO DAILY 09/13/20 09/01/23 desvenlafaxine 50 mg 50 mg PO DAILY 09/01/23 09/01/23 tablet,extended release 24 hr pantoprazole 40 mg tablet,delayed 40 mg PO DAILY 09/01/23 09/01/23 release Previous Rx's Medication Instructions Recorded ondansetron 4 mg disintegrating 4 mg PO Q6H PRN nausea and 08/07/23 tablet vomiting #10 tabs ondansetron 4 mg disintegrating 4 mg PO Q8H PRN nausea and 11/12/23 tablet vomiting #30 tabs Allergies Allergy/AdvReac Type Severity Reaction Status Date / Time No Known Drug Allergies Allergy Verified 09/01/23 15:22 Patient History Medical History GERD (gastroesophageal reflux disease) Anesthesia complication Hallux valgus (acquired), right foot Panic attack Disease of thyroid gland Clotting disorder History of pneumonia History of PFTs (~02/2020) Amy-menopausal Osteoarthritis (~2017) PTSD (post-traumatic stress disorder) (~2013) Anxiety (~2006) HIV (human immunodeficiency virus infection) (~2006) Thrombocytopenia (~2000) Painful menstrual periods (~2010) Heavy menstrual period (~2010) Thyroid nodule (~2016) Hypothyroidism (~2019) Right knee pain Surgical History Status post right foot surgery (04/02/23) History of excision of pilonidal cyst (~03/2022) History of History of orthopedic surgery (10/10/21) History of bunionectomy of right great toe (09/12/21) History of laparoscopy-assisted vaginal hysterectomy (09/13/20) Anesthesia History of partial thyroidectomy (~11/29/19) History of section History of lumpectomy (~1991) Family History Sister Cancer Non-Hodgkin's lymphoma Grandfather Stroke Social History household members: spouse and children Smoking Status: Former smoker alcohol intake: current Smoking Status: Former smoker alcohol intake frequency: holidays/special occasions only Substance Use Type: does not use Exam Initial Vital Signs Initial Vital Signs: Vital Signs Pulse Rate 112 H 11/12/23 06:37 Blood Pressure 115/65 11/12/23 06:37 Pulse Oximetry 98 11/12/23 06:37 Const: Awake, alert, no acute distress, nontoxic appearing Cardiac: regular rate, regular rhythm RESP: unlabored, clear bilaterally, no wheezing GI: Soft, nontender, nondistended, no rebound, no guarding Skin: Warm, Dry, intact, no rashes Neuro: AO x3, CN II-XII grossly intact, moves all extremities Course Orders Ordered: Discontinued Medications Sodium Chloride (Normal Saline 0.9%) 1,000 mls @ 1,000 mls/hr IV BOLUS ONE Stop: 11/12/23 08:06 Last Infusion: 11/12/23 08:31 Dose: Infused Documented By: Admin: 11/12/23 07:17 Dose: 1,000 mls/hr Documented By: NYA Ondansetron HCl (Ondansetron 4 Mg/2 Ml Inj) 4 mg IV NOW ONE Stop: 11/12/23 07:08 Last Admin: 11/12/23 07:18 Dose: 4 mg Documented By: NYA Vital Signs Vital signs: Vital Signs - 8 hr 11/12/23 06:37 11/12/23 06:37 11/12/23 06:40 Temperature 98.1 F Pulse Rate 112 H 100 H Respiratory Rate 16 Blood Pressure 115/65 115/65 Pulse Oximetry 98 97 Oxygen Delivery Method Room Air 11/12/23 07:00 11/12/23 07:00 11/12/23 07:30 Temperature Pulse Rate 101 H 99 H Respiratory Rate Blood Pressure 109/74 Pulse Oximetry 98 97 Oxygen Delivery Method 11/12/23 07:30 11/12/23 08:00 Temperature Pulse Rate 98 H Respiratory Rate Blood Pressure 113/75 Pulse Oximetry 100 Oxygen Delivery Method MDM - Nausea/Vomiting/Diarrhea Differential Diagnosis Differential diagnosis: Likely traveler's diarrhea, food poisoning and gastroenteritis Lab Data 11/12/23 06:47 11/12/23 06:47 Labs: Lab Results 11/12/23 Range/Units 06:47 WBC 5.2 (4.5-11.0) X10^3/uL RBC 4.48 (4.0-5.2) X10^6/uL Hgb 15.0 (12.0-16.0) g/dL Hct 43.7 (36-46) % MCV 97.5 (80-100) fL MCH 33.6 (26-34) PG MCHC 34.4 (30-36) % RDW 12.8 (11.6-14.8) % Plt Count 90 L (150-400) X10^3/uL Neut % (Auto) 76.6 H (50-75) % Lymph % (Auto) 16.7 L (25-40) % [place] % (Auto) 6.2 (3-14) % Eos % (Auto) 0.2 L (2-4) % Baso % (Auto) 0.3 (0-2) % Neut # (Auto) 4000 (1114-3247) /uL Lymph # (Auto) 900 L (0376-7054) /uL [place] # (Auto) 300 (0-900) /uL Eos # (Auto) 0 (0-450) /uL Baso # (Auto) 0 (0-100) /uL Platelet Estimate Plt Morphology Comment N RBC Morphology Normal morphology Sodium 137 (137-145) mmol/L Potassium 3.4 (3.4-5.1) mmol/L Chloride 103 (98-107) mmol/L Carbon Dioxide 27 (22-32) mmol/L BUN 11 (7-17) mg/dL Creatinine 0.80 (0.52-1.04) mg/dL Estimated GFR > 60 (>60) mL/min BUN/Creatinine Ratio 13.8 (6-22) Glucose 119 H (70-100) mg/dL Calcium 8.8 (8.4-10.2) mg/dL Total Bilirubin 0.4 (0.2-1.3) mg/dL AST 31 (14-36) IU/L ALT 18 (<35) IU/L Alkaline Phosphatase 70 (38-126) U/L Total Protein 6.7 (6.3-8.2) g/dL Albumin 4.1 (3.5-5.0) g/dL Globulin 2.6 (1.7-4.1) g/dL Albumin/Globulin Ratio 1.6 (1.0-2.8) Lipase 80 (23-300) U/L Point of Care Testing Test Results Negative Urine Dip Bedside Urine Glucose Negative Bedside Urine Bilirubin - Negative Bedside Urine Ketone - Negative Urine Specific [place] 1.015 Bedside Urine Occult Blood - Negative Bedside Urine pH 6.0 Bedside Urine Protein - Negative Bedside Urine Urobilinogen - Negative Bedside Urine Nitrite - Negative Bedside Urine Leukocytes - Negative Esterase MDM Narrative Medical decision making narrative: Well-appearing patient with several days of diarrhea and decreased p.o. intake due to nausea. Abdomen soft, no significant tenderness to light or deep palpation, at this time no indication for advanced imaging. Patient given L of IV fluids, subsequently able to tolerate sips of yg concepcion without emesis. Laboratory work is reviewed, patient has chronic thrombocytopenia which is at her baseline, however electrolytes are within normal limits, no ketones present on urinalysis, 0.8 and GFR greater than 60. Patient counseled on the importance of maintaining fluid hydration, antinausea medication sent to pharmacy of choice. Discharge Plan Departure Patient Disposition: Home Clinical Impression: Gastroenteritis Instructions: DI for Viral Gastroenteritis -- Adult Activity Restrictions/Additional Instructions: Make sure to drink plenty of fluids and stay hydrated Prescriptions: New ondansetron 4 mg tablet,disintegrating 4 mg PO Q8H PRN (Reason: nausea and vomiting) Qty: 30 0RF No Action levothyroxine 50 mcg capsule 75 mcg PO DAILY pantoprazole 40 mg tablet,delayed release (DR/EC) 40 mg PO DAILY desvenlafaxine 50 mg tablet extended release 24 hr 50 mg PO DAILY trazodone 50 mg tablet 50 mg PO BEDTIME multivitamin Tablet 1 tab PO DAILY ondansetron 4 mg tablet,disintegrating 4 mg PO Q6H PRN (Reason: nausea and vomiting) Qty: 10 0RF Referrals: Kiki Serrano ARNP [Primary Care Provider] - Stand Alone Forms: Patient Portal/API
[2023-11-12 08:09] LABS: Platelet Morphology Comment N; RBC Morphology Normal Morphology
--- NOTE | 2023-11-12 08:25 | EKG_ITS ---
[address] [id number] [address], [place] [address] Test Date: 2023-11-12 Pat Name: Adela Eddy Department: Room: Gender: Female [employer]: SEAN : 1975 Requested By: Order Number: [id number] Reading MD: Hector Espinal MD Measurements Intervals [place] Rate: 87 P: 24 TX: 118 QRS: 49 QRSD: 80 T: 23 QT: 356 QTc: 428 Interpretive Statements Normal sinus rhythm Electronically Signed On 11-12-2023 11:48:32 PDT by Hector Espinal MD
== END 2023-11-12 08:47 | disposition home or self-care (01) ==
PROVIDERS: Emergency Provider Emergency Medicine; PCP Nurse Practitioner
DX: K52.9 Noninfective gastroenteritis and colitis, unspecified (principal); R07.9 Chest pain, unspecified
CPT/HCPCS: 36415; 80053; 81003; 81025; 83690; 85025; 93005; 93010; 96361; 96374; 99284; J2405

== ENCOUNTER → 2024-02-21 08:03 | Outpatient (CLI) | payer OTHER, BC, SELFPAY ==
[2022-03-09 09:56] VITALS: BMI 25.0
--- NOTE | 2024-02-21 | DI.MG.S_ITS ---
BILATERAL DIGITAL SCREENING MAMMOGRAM 3D/2D WITH CAD: 02/21/2024 CLINICAL: Routine screening. Comparison is made to exams dated: 02/17/2023 mammogram, 03/10/2021 mammogram, 09/23/2020 mammogram, and 03/25/2020 mammogram - [facility]. The breasts are extremely dense, which lowers the sensitivity of mammography (category d />75% glandular tissue). Current study was also evaluated with a Computer Aided Detection (CAD) system. No significant masses, calcifications, or other findings are seen in either breast. There has been no significant interval change. IMPRESSION: NEGATIVE There is no mammographic evidence of malignancy. A 1 year screening mammogram is recommended. Based on the Tyrer Cuzick model (a risk assessment model) the patient's lifetime risk is 17.5% and her 10 year risk is 3.5%. According to the ACR, ACS, and NCCN guidelines, an annual breast MRI exam along with mammogram is recommended if the patient's lifetime risk is 20% or greater. This exam was interpreted at Station ID: [id number]. NOTE: For mammograms, a report in lay terms will be sent to the patient. Approximately 15% of breast malignancies will not be visualized mammographically. In the management of a palpable breast mass, a negative mammogram must not discourage biopsy of a clinically suspicious lesion. Electronically Signed By: Darcy Owens M.D., Ph.D. faith/corina:02/22/2024 09:53:11 letter sent: Normal Exam ACR BI-RADS Category 1: Negative
== END ==
LOC: MAMMO 08:04
PROVIDERS: PCP Nurse Practitioner Family; Referring Provider Nurse Practitioner Family; Visit Provider Nurse Practitioner Family
DX: Z12.31 Encounter for screening mammogram for malignant neoplasm of breast (principal); R92.343 Mammographic extreme density, bilateral breasts
CPT/HCPCS: 77063; 77067

== ENCOUNTER 2024-07-27 07:33 | Emergency (ER) | payer OTHER, BC, SELFPAY ==
[2022-03-09 09:56] VITALS: BMI 25.0
[2024-07-27 07:45] VITALS: BP 114/77; PULSE 98; RESP 16; TEMP 36.5; O2SAT 99; BMI 23.9
[2024-07-27 09:50] VITALS: BP 121/84; PULSE 85; O2SAT 100
[2024-07-27] MEDS: ACETAMINOPHEN 325 MG TABLET 650 MG PO (09:50)
[2024-07-27] MEDS: IBUPROFEN 400 MG TABLET PO (09:50)
--- NOTE | 2024-07-27 11:38 | ED_ITS ---
HPI - Back Pain/Injury <Leslie Jarrell PA-C - Last Filed: 07/27/24 13:18> General Chief Complaint: Back Pain/Injury Stated Complaint: Per patient, Sciatic Nerve flare up Time Seen by Provider: 07/27/24 11:37 History of Present Illness HPI Narrative: Ms. Eddy is a pleasant 48-year-old female with a past medical history of sciatica, hypothyroidism, GERD who presents to the emergency department for ?sciatic nerve flare-up since yesterday. Reports last night she went to turn to put bags of groceries away and she felt a pop in her left hip and pain radiating down both legs. Reports pain in both sides of the hips, felt numbness in her hips last night but this is gone away. Denies loss of bowel or bladder sensation. Patient reports she has had similar pain happened in the past however this is the 1st time the pain was on both sides of her hips. Yesterday she used KT tape on her back, ibuprofen and ice without relief. She did not take any pain medications this morning but did receive ibuprofen and acetaminophen in the ED triage. No history of back or leg surgeries. Denies fevers, chills, abdominal pain, nausea, vomiting, diarrhea, dysuria, hematuria, flank pain. Pain is primarily located in the left lumbar region at this time. She is ambulatory independently and drove herself to the ED. Related Data Home Medications Medication Instructions Recorded Confirmed levothyroxine 50 mcg capsule 75 mcg PO DAILY 08/15/20 09/01/23 trazodone 50 mg tablet 50 mg PO BEDTIME 09/06/20 09/01/23 multivitamin 1 tab PO DAILY 09/13/20 09/01/23 desvenlafaxine 50 mg 50 mg PO DAILY 09/01/23 09/01/23 tablet,extended release 24 hr pantoprazole 40 mg tablet,delayed 40 mg PO DAILY 09/01/23 09/01/23 release Previous Rx's Medication Instructions Recorded ondansetron 4 mg disintegrating 4 mg PO Q6H PRN nausea and 08/07/23 tablet vomiting #10 tabs ondansetron 4 mg disintegrating 4 mg PO Q8H PRN nausea and 11/12/23 tablet vomiting #30 tabs lidocaine 5 % topical patch 1 patch topical DAILY #15 ea 07/27/24 (Lidoderm) methocarbamol 500 mg tablet 500 mg PO TID PRN muscle spasm #14 07/27/24 tabs naproxen 500 mg tablet 500 mg PO BID PRN pain #14 tabs 07/27/24 prednisone 20 mg tablet 40 mg (2 x 20 mg) PO DAILY 5 days 07/27/24 #10 tabs Allergies Allergy/AdvReac Type Severity Reaction Status Date / Time No Known Drug Allergies Allergy Verified 07/27/24 07:45 Review of Systems <Leslie Jarrell PA-C - Last Filed: 07/27/24 13:18> Review of Systems ROS Unobtainable: All systems reviewed & are unremarkable except as noted in HPI and below Patient History <Leslie Jarrell PA-C - Last Filed: 07/27/24 13:18> Medical History GERD (gastroesophageal reflux disease) Anesthesia complication Hallux valgus (acquired), right foot Panic attack Disease of thyroid gland Clotting disorder History of pneumonia History of PFTs (~02/2020) Amy-menopausal Osteoarthritis (~2017) PTSD (post-traumatic stress disorder) (~2013) Anxiety (~2006) HIV (human immunodeficiency virus infection) (~2006) Thrombocytopenia (~2000) Painful menstrual periods (~2010) Heavy menstrual period (~2010) Thyroid nodule (~2016) Hypothyroidism (~2019) Right knee pain Surgical History Status post right foot surgery (04/02/23) History of excision of pilonidal cyst (~03/2022) History of History of orthopedic surgery (10/10/21) History of bunionectomy of right great toe (09/12/21) History of laparoscopy-assisted vaginal hysterectomy (09/13/20) Anesthesia History of partial thyroidectomy (~11/29/19) History of section History of lumpectomy (~1991) Family History Sister Cancer Non-Hodgkin's lymphoma Grandfather Stroke Social History household members: spouse and children Smoking Status: Former smoker alcohol intake: current Smoking Status: Former smoker alcohol intake frequency: holidays/special occasions only Exam <Leslie Jarrell PA-C - Last Filed: 07/27/24 13:18> Narrative Exam Narrative: GENERAL: 48 year old patient appears stated age. Well-developed patient, in no acute distress. Pain with going from sitting to standing position, she is ambulatory independently. HEAD: Atraumatic. Normocephalic. NECK: Trachea midline. Cervical ROM intact. CARDIOVASCULAR: Regular rate and rhythm. RESPIRATORY: ?Nonlabored respirations. ?Speaking in clear, full sentences. ?Clear to auscultation. Breath sounds equal bilaterally. No wheezes, rales, or rhonchi. ? GASTROINTESTINAL: Abdomen soft, non-tender, nondistended. EXTREMITIES: No edema or joint tenderness. Strong DP and PT pulses bilaterally and brisk capillary refill in the toes. BACK: Tenderness to palpation of left lumbar paraspinal region and subjective pain with movement in the left hip but no tenderness palpation of the left hip. +L SLR. NEURO: AOx3. ?Clear speech. ?Moves all 4 extremities appropriately. 5/5 bilateral lower extremity plantar and dorsiflexion strength, sensation intact to light touch, ambulatory. SKIN: No rash or erythema of visible areas Initial Vital Signs Initial Vital Signs: Vital Signs Temperature 97.7 F 07/27/24 07:45 Pulse Rate 98 H 07/27/24 07:45 Respiratory Rate 16 07/27/24 07:45 Blood Pressure 114/77 07/27/24 07:45 Pulse Oximetry 99 07/27/24 07:45 Oxygen Delivery Method Room Air 07/27/24 07:45 <Joe Wade MD - Last Filed: 07/27/24 16:35> Initial Vital Signs Initial Vital Signs: Vital Signs Temperature 97.7 F 07/27/24 07:45 Pulse Rate 98 H 07/27/24 07:45 Respiratory Rate 16 07/27/24 07:45 Blood Pressure 114/77 07/27/24 07:45 Pulse Oximetry 99 07/27/24 07:45 Oxygen Delivery Method Room Air 07/27/24 07:45 Course <Leslie Jarrell PA-C - Last Filed: 07/27/24 13:18> Orders Ordered: ED Orders 07/27/24 11:50 XR pelvis 1-2V Stat Discontinued Medications Acetaminophen (Acetaminophen 325 Mg Tablet) 650 mg PO NOW ONE Stop: 07/27/24 09:44 Last Admin: 07/27/24 09:50 Dose: 650 mg Documented By: ORION Ibuprofen (Ibuprofen 400 Mg Tablet) 400 mg PO NOW ONE Stop: 07/27/24 09:44 Last Admin: 07/27/24 09:50 Dose: 400 mg Documented By: ORION Ketorolac Tromethamine (Ketorolac 30 Mg/Ml Vial) 15 mg IM NOW ONE Stop: 07/27/24 11:51 Last Admin: 07/27/24 12:40 Dose: 15 mg Documented By: BRYAN Lidocaine (Lidocaine 5% Patch) 1 each TOP NOW ONE Stop: 07/27/24 11:51 Last Admin: 07/27/24 12:40 Dose: 1 each Documented By: BRYAN Prednisone (Prednisone 20 Mg Tablet) 40 mg PO NOW ONE Stop: 07/27/24 11:51 Last Admin: 07/27/24 12:40 Dose: 40 mg Documented By: BRYAN Vital Signs Vital signs: Vital Signs - 8 hr 07/27/24 09:50 07/27/24 13:30 Pulse Rate 85 81 Respiratory Rate 14 Blood Pressure 121/84 118/74 Pulse Oximetry 100 100 Oxygen Delivery Method Room Air Room Air <Joe Wade MD - Last Filed: 07/27/24 16:35> Orders Ordered: ED Orders 07/27/24 11:50 XR pelvis 1-2V Stat Discontinued Medications Acetaminophen (Acetaminophen 325 Mg Tablet) 650 mg PO NOW ONE Stop: 07/27/24 09:44 Last Admin: 07/27/24 09:50 Dose: 650 mg Documented By: ORION Ibuprofen (Ibuprofen 400 Mg Tablet) 400 mg PO NOW ONE Stop: 07/27/24 09:44 Last Admin: 07/27/24 09:50 Dose: 400 mg Documented By: ORION Ketorolac Tromethamine (Ketorolac 30 Mg/Ml Vial) 15 mg IM NOW ONE Stop: 07/27/24 11:51 Last Admin: 07/27/24 12:40 Dose: 15 mg Documented By: BRYAN Lidocaine (Lidocaine 5% Patch) 1 each TOP NOW ONE Stop: 07/27/24 11:51 Last Admin: 07/27/24 12:40 Dose: 1 each Documented By: BRYAN Prednisone (Prednisone 20 Mg Tablet) 40 mg PO NOW ONE Stop: 07/27/24 11:51 Last Admin: 07/27/24 12:40 Dose: 40 mg Documented By: BRYAN Vital Signs Vital signs: Vital Signs - 8 hr 07/27/24 09:50 07/27/24 13:30 Pulse Rate 85 81 Respiratory Rate 14 Blood Pressure 121/84 118/74 Pulse Oximetry 100 100 Oxygen Delivery Method Room Air Room Air MDM - Back Pain/Injury <Leslie Jarrell PA-C - Last Filed: 07/27/24 13:18> Medical Records Attestation: I reviewed the patient's medical records. Imaging Data Pelvic XR: Radiologist's Impression: PROCEDURE: XR PELVIS 1-2V INDICATIONS: L hip pain popping TECHNIQUE: 1 view(s) of the pelvis acquired. COMPARISON: None. FINDINGS: Bones: No fractures or dislocations. No suspicious bony lesions. Soft tissues: Visualized bowel gas pattern is normal. No suspicious soft tissue calcifications. IMPRESSION: No acute bony abnormality. MDM Narrative Medical decision making narrative: 48-year-old female with a past medical history of sciatica, hypothyroidism, GERD who presents to the emergency department for ?sciatic nerve flare-up since yesterday. Differential diagnosis includes but is not limited to sacroiliitis, lumbar muscle strain, hip strain, femoral head necrosis, muscle spasm, etc. On exam the patient is in no acute distress, nontoxic appearing, vital signs within normal limits. She does have significant pain in the left hip/left low back going from sitting to standing position. She is ambulatory. Lower legs are neurovascularly intact, no bowel or bladder incontinence numbness or weakness. She has had history of hysterectomy. Low-dose ibuprofen and acetaminophen obtained in triage and I helped symptoms at all. We will treat with Lidoderm, prednisone, 15 mg IM Toradol, we will obtain pelvis x-ray to further evaluate left hip. Patient feeling improved after ED treatment. We will prescribe her naproxen, Robaxin, prednisone, Lidoderm for home and encourage supportive care with TENs unit, heat therapy, gentle stretching, acetaminophen as well. Advised to follow up with PCP for further evaluation, possible physical therapy or further imaging. Discussed strict ED return precautions with the patient. She verbalized understanding of all information is agreeable to the plan. She is ambulatory and stable for discharge home. Discharge Plan Departure Patient Disposition: Home Clinical Impression: Acute left lumbar radiculopathy Instructions: DI for Low Back Pain Activity Restrictions/Additional Instructions: Dear Inderjit Surjit, Thank you for coming to the emergency department today. We obtained an x-ray of your hips and pelvis which reveals no acute bony abnormality. You were treated with an injection of anti-inflammatory pain medication, steroids, topical numbing patch. I have prescribed you naproxen which is an anti-inflammatory pain medication to take in addition to Tylenol, plus Robaxin which is a muscle relaxer, topical Lidoderm, prednisone which is a steroid. Please complete the full course of steroid and use the muscle relaxers and pain medications as needed. Do not take ibuprofen and naproxen together as these are similar medications. Please be aware that Robaxin as a muscle relaxer which may make you drowsy, do not drive or operate heavy machinery while taking this medication. Please follow up with the primary care doctor for further evaluation. Please stretch, perform gentle exercise, and limit activity based on your pain. You may use heat therapy and topical TENs unit as well. Please return to the emergency department if you develop severe pain, numbness or weakness, bowel or bladder dysfunction, or any other concerns. Please follow up with your primary care doctor within the next 2-3 days for ER follow-up. (If you do not have a PCP you can call [phone]. ?to schedule an appointment with an [facility] Primary Care Provider) IF YOU DEVELOP ANY NEW OR WORSENING SYMPTOMS, RETURN TO THE ER! Please read the attached instructions, they highlight more specific treatments and interventions for you at home. Thank you for letting me participate in your care, Leslie Jarrell PA-C Prescriptions: New naproxen 500 mg tablet 500 mg PO BID PRN (Reason: pain) Qty: 14 0RF Rx Instructions: Take with food/meal. prednisone 20 mg tablet 40 mg PO DAILY 5 Days Qty: 10 0RF methocarbamol 500 mg tablet 500 mg PO TID PRN (Reason: muscle spasm) Qty: 14 0RF lidocaine [Lidoderm] 5 % adhesive patch,medicated 1 patch topical DAILY Qty: 15 0RF Rx Instructions: leave on most painful area for up to 12 hrs No Action levothyroxine 50 mcg capsule 75 mcg PO DAILY pantoprazole 40 mg tablet,delayed release (DR/EC) 40 mg PO DAILY desvenlafaxine 50 mg tablet extended release 24 hr 50 mg PO DAILY trazodone 50 mg tablet 50 mg PO BEDTIME multivitamin Tablet 1 tab PO DAILY ondansetron 4 mg tablet,disintegrating 4 mg PO Q6H PRN (Reason: nausea and vomiting) Qty: 10 0RF ondansetron 4 mg tablet,disintegrating 4 mg PO Q8H PRN (Reason: nausea and vomiting) Qty: 30 0RF Referrals: Tarah Steward ARNP [Primary Care Provider] - Stand Alone Forms: Patient Portal/API/Survey ED Sign-out <Joe Wade MD - Last Filed: 07/27/24 16:35> Cosign ED Attending Brittany Attestation: I was immediately available in the department for consultation. ?This documentation has been reviewed and I agree with assessment and plan. Supervised by Joe Wade MD
--- NOTE | 2024-07-27 11:50 | DI.RAD.S_ITS ---
PROCEDURE: XR PELVIS 1-2V INDICATIONS: L hip pain popping TECHNIQUE: 1 view(s) of the pelvis acquired. COMPARISON: None. FINDINGS: Bones: No fractures or dislocations. No suspicious bony lesions. Soft tissues: Visualized bowel gas pattern is normal. No suspicious soft tissue calcifications. IMPRESSION: No acute bony abnormality. Dictated by: Carolyn Ruffin MD, PhD on 07/27/2024 at 12:21 Approved by: Carolyn Ruffin MD, PhD on 07/27/2024 at 12:22
[2024-07-27] MEDS: predniSONE 20 MG TABLET 40 MG PO (12:40)
[2024-07-27] MEDS: KETOROLAC 30 MG/ML VIAL 15 MG IM (12:40)
[2024-07-27] MEDS: LIDOCAINE 5% PATCH 1 EACH TOP (12:40)
[2024-07-27 13:30] VITALS: BP 118/74; PULSE 81; RESP 14; O2SAT 100
== END 2024-07-27 13:31 | disposition home or self-care (01) ==
PROVIDERS: Emergency Provider Physician Assistant; PCP Nurse Practitioner Family
DX: M54.16 Radiculopathy, lumbar region (principal)
CPT/HCPCS: 72170; 96372; 99283; 99284; J1885

== ENCOUNTER → 2025-02-21 07:35 | Outpatient (CLI) | payer OTHER, BC, SELFPAY ==
[2022-03-09 09:56] VITALS: BMI 25.0
--- NOTE | 2025-02-21 07:38 | DI.MG.S_ITS ---
MM screening mammo BI: 02/21/2025. BI-RADS: 0 CLINICAL: 49-year old female for bilateral screening mammogram. Tyrer-Cuzick lifetime risk of 15.4%. No personal or first-degree family history of breast cancer. PRIOR EXAMS 02/21/2024, 02/17/2023, 03/10/2021, 09/23/2020, 03/25/2020. MAMMOGRAPHY TECHNIQUE: 2D and 3D (tomosynthesis) digital mammographic views obtained, with additional images as needed for full coverage. Current study was also evaluated with a Computer Aided Detection (CAD) system. DENSITY D. The breasts are extremely dense, which lowers the sensitivity of mammography. MAMMOGRAPHY FINDINGS Right: No suspicious mass, asymmetry, microcalcification, or other abnormality seen. Left: Lower Outer Quadrant, Middle depth: Mass needing additional imaging evaluation. IMPRESSION: Right * No evidence of malignancy. Left (Mass): Lower Outer Quadrant, Middle depth * Incomplete - mass needing additional imaging evaluation. RECOMMENDATIONS Left: Lower Outer Quadrant, Middle depth * Further evaluation with diagnostic mammography and diagnostic ultrasound. Ultrasound to be performed only if needed. OVERALL ASSESSMENT CATEGORY BI-RADS-0: Incomplete - Need Additional Imaging Evaluation. ELECTRONICALLY SIGNED: Heike Rapp M.D. on 02/21/2025 at 04:38:49 PM PT Interpreting Station ID: [id number]
== END ==
LOC: MAMMO 07:37
PROVIDERS: PCP Nurse Practitioner Family; Referring Provider Nurse Practitioner Family; Visit Provider Nurse Practitioner Family
DX: Z12.31 Encounter for screening mammogram for malignant neoplasm of breast (principal); R92.343 Mammographic extreme density, bilateral breasts
CPT/HCPCS: 77063; 77067

== ENCOUNTER → 2025-02-28 10:03 | Outpatient (CLI) | payer OTHER, BC, SELFPAY ==
[2022-03-09 09:56] VITALS: BMI 25.0
--- NOTE | 2025-02-28 10:04 | DI.US.S_ITS ---
MM diagnostic mammo unilat LT, US breast LT limited: 02/28/2025 BI-RADS: 2 CLINICAL: 49-year old female for left diagnostic mammogram and left diagnostic breast ultrasound that is a recall from screening on 02/21/2025. Tyrer-Cuzick lifetime risk of 15.4%. No personal or first-degree family history of breast cancer. PRIOR EXAMS 02/21/2025, 02/21/2024, 02/17/2023, 03/10/2021, 09/23/2020. MAMMOGRAPHY TECHNIQUE: 2D and 3D (tomosynthesis) digital mammographic views obtained, with additional images as needed for full coverage. Current study was also evaluated with a Computer Aided Detection (CAD) system. ULTRASOUND TECHNIQUE: Real-time alvarenga scale and color doppler imaging of the area of clinical interest was performed with image documentation. TARGETED Left Breast Ultrasound: Real-time ultrasound exam was performed focused to area of clinical and/or imaging concern. DENSITY Left: D. The breast is extremely dense, which lowers the sensitivity of mammography. MAMMOGRAPHY FINDINGS Left (finding-1): Lower Outer Quadrant, Middle depth, measuring 1.2cm: Correlating with findings on screening mammogram there is a circumscribed, oval, equal- density mass present. ULTRASOUND FINDINGS Left (finding-1): Lower Outer at 5:00, 3 cm from nipple, measuring 1.3 x 0.8 x 1 cm: Correlating with findings on mammogram, there is a simple anechoic cyst. Doppler shows no vascularity. IMPRESSION: Left * No evidence of malignancy with benign findings. RECOMMENDATIONS Bilateral * Annual screening mammography. COMMENTS: Findings and recommendations were conveyed to the patient during today's evaluation. OVERALL ASSESSMENT CATEGORY BI-RADS-2: Benign. The [employer] recommends annual screening mammography beginning at age 40 for women with average risk of breast cancer. ELECTRONICALLY SIGNED: Heike Rapp M.D. on 02/28/2025 at 11:41:19 AM PT Interpreting Station ID: [id number]
== END ==
LOC: MAMMO 10:03
PROVIDERS: PCP Nurse Practitioner Family; Referring Provider Nurse Practitioner Family; Visit Provider Nurse Practitioner Family
DX: R92.8 Other abnormal and inconclusive findings on diagnostic imaging of breast (principal); N60.02 Solitary cyst of left breast; R92.342 Mammographic extreme density, left breast
CPT/HCPCS: 76642; 77065; G0279